=== PATIENT | female | born 1980 | race Caucasian/White ===

== ENCOUNTER 2025-04-16 13:33 | Outpatient (CLI) | payer BC, SELFPAY ==
--- NOTE | ~2025-04-16 | XR_ITS ---
XR chest 2V Ordering provider: Harriett Chandra MD History: 44 years Female with . M51.16 - Intervertebral disc disorders with radiculopathy... . Comparison: None. FINDINGS: MEDIASTINUM: The cardiac silhouette is not enlarged. LUNGS: No infiltrates, effusions or pneumothorax. OTHER: No free air under the diaphragm. IMPRESSION: No acute cardiopulmonary pathology. Reviewed, dictated and finalized at location A.
--- OUTSIDE RECORDS SUMMARY | 2025-04-16 14:17 | XMS_ITS | Clinical Summary ---
Author Organization [facility] Address [address] [place] [address] Care Team Providers Care Recruiting Intern Name Role Phone Amish Carrero MD Primary Care Provider [phone] Source Comments [facility] Affiliates and Associated Physician Practices is amultiple site organization consisting of ambulatory clinics and hospital sitesin [place], [place], [place]. This disclosure is being madepursuant to the Care Everywhere program and may not contain all information available regarding this patient. Last updated 18.[facility] [email or web address] Social History Tobacco Use Types Packs/Day Years Used Date Smoking Tobacco: Never Assessed Comments Unknown Sex and Gender Information Value Date Recorded Sex Assigned at Not on file Legal Sex Female 4:30 PM CDT Gender Identity Not on file Sexual Orientation Not on file Plan of Treatment Health Maintenance Due Date Last Done Comments COLOGUARD (AGES 45-75) - COL ON CA SCREENING 1978 COLON MONITORING 1978 COLONOSCOPY - COLON CA SCREENING 1978 CT COLONOGRAPHY - COLON CA SCREENING 1978 Colorectal Cancer Screening 1978 FIT - COLON CA SCREENING 1978 FLEX SIG - COLON CA SCREENING 1978 LIPID TESTING 1978 MAMMOGRAM 1978 HIV SCREENING 1993 HEPATITIS C SCREENING 08/12/1996 DTAP/TDAP/TD VACCINES (1 - Tdap) 1997 HEPATITIS B VACCINE (1 of 3 - 19+ 3-dose series) 1997 COVID-19 VACCINE (2023-2 5 season) 2024 DEPRESSION SCREENING 11/05/2024 INFLUENZA VACCINE (Season Ended) 2025 ZOSTER VACCINE (1 of 2) 2028 HIB VACCINE Aged Out No longer eligi ble based on patient's age to complete this topic HPV VACCINE Aged Out No longer eligi ble based on patient's age to complete this topic MENINGOCOCCAL (Group B) VACC INE SHARED DECISION-MAKING Aged Out No longer eligibl e based on patient's age to complete this topic MENINGOCOCCAL GROUPS A/C/Y/W VACCINE Aged Out No longer eligible b ased on patient's age to complete this topic PNEUMOCOCCAL VACCINE Aged Out No long er eligible based on patient's age to complete this topic Insurance [employer] Care Teams Recruiting Intern Relationship Specialty Start Date End Date Amish Carrero MD [address] [place] [address] PCP - General Family Medicine 06/21/15
--- OUTSIDE RECORDS SUMMARY | 2025-04-16 14:17 | XMS_ITS | Patient Health Record ---
Author Organization [facility] [employer] [place] ([address]) Address [address] [place] [address] Care Team Providers Care Legal Associate Name Role Phone Jackelin Wei Primary Care Provider UnavailRebekah Blackmon Unavailable [phone] Sarah Bishop Unavailable Unavailable Rafael Price Unavailable [phone] Kathe Guevara Unavailable [phone] [employer], Provider Unavailable Unavailab le Allergies Allergen (clinical drug ingredient) Drug/Non Drug Allergy documented on EMR Reaction Allergy Type Onset Date Status carbamazepine TEGretol rash Drug Allergy Act ngoc Reason For Referral No Information Medications Medication SIG (Take, Route, Frequency, Duration) Notes Start Date End Date Status POTASSIUM 99 mg 1 tab orally once per day for 30 day(s) Not-Taking CRESTOR 10 mg 1 tab(s) orally once a day for 30 day(s) Not-Taking FIORICET 300 mg-50 mg-40 mg 1 cap(s) orally every 4 hours Not-Taking JARDIANCE 10 mg 1 tab(s) orally once a day (in the morning) Not-Taking FOLIC ACID 1 mg 1 tab(s) orally once a day for 30 day(s) Not-Taking VITAMIN D3 50,000 intl units as directed orally once a week for 30 day(s) 05/05/2021 Not-Taking METOPROLOL 50 mg 1 tab(s) orally twice a day Not-Taking COLESTID 1 g 2 tab(s) orally 2 times a day for 30 day(s) Not-Taking BENTYL 10 mg/mL as directed intramuscularly every 6 hours for 1 day(s) Not-Taking POTASSIUM 99 mg 1 tab orally once per day for 30 day(s) Not-Taking predniSONE 20 mg 2 tab(s) x 5 days then 1 tab x 5 days orally once a day for 10 day(s) 05/05/2021 Not-Taking XOLAIR PREFILLED SYRINGE 150 MG/ML DIRECTED SUBCUTANEOUSLY EVERY 4 WEEKS for 28 DAYS *Please review for potential replacement for e-prescription and drug interaction check* 07/29/2020 Not-Taking SINGULAIR 10 mg 1 tab(s) orally once a day for 90 days Not-Taking METOPROLOL 50 mg 1 tab(s) orally 2 times a day Active SYNJARDY 5 mg-1000 mg 1 tab(s) orally daily Not-Taking GABAPENTIN 300 mg 2 cap(s) orally 3 times a day Not-Taking CRESTOR 20 mg 1 tab(s) orally once a day Not-Taking METFORMIN 1000 mg 1 tab(s) orally 2 times a day for 30 day(s) Not-Taking JARDIANCE 10 mg 1 tab(s) orally once a day (in the morning) Not-Taking METFORMIN 1000 mg 1 tab(s) orally once a day for 30 day(s) Not-Taking PREDNISONE 20 mg 2 tab(s) x 5 days then 1 tab x 5 days orally once a day for 10 day(s) 05/05/2021 Not-Taking Singulair 10 MG 1 tab(s) orally once a day for 90 days Active hydrOXYzine HCl 25 MG 1 tablet as needed Orally 1-2 times a day for 30 days Active FEXOFENADINE 180 mg 2 tab(s) orally twice a day for 30 day(s) Active XOLAIR 150 mg 300 mg subcutaneously every 4 weeks for 90 days Active FAMOTIDINE 40 mg 1 tab(s) orally two times a day for 90 days Active VASOTEC 10 mg 1 tab(s) orally once a day Active metFORMIN HCl 1000 MG 1 TAB(S) ORALLY ONCE A DAY for 30 DAY(S) *Please review and pick correct strength-formula tion from [employer] options. If intended option is not shown, discontinue and re-order from Quick Search* Not-Taking XELJANZ 10 mg 1 tab(s) orally 2 times a day Not-Taking PREDNISONE 20 mg 4 tab(s) orally once a day for 7 day(s) 08/11/2021 Not-Taking CETIRIZINE 10 mg 2 tab(s) orally BID-TID Not-Taking Vasotec 10 MG 1 tab(s) orally once a day Active ZOFRAN 8 MG 1 TAB(S) ORALLY 3 TIMES A DAY *Please review for potential replacement for e-prescription and drug interaction check* Not-Taking Metoprolol Tartrate 50 MG 1 tab(s) orally 2 times a day Active Fioricet 50-300-40 MG 1 cap(s) orally every 4 hours Not-Taking Fish Oil 1200 MG 1 CAP ORALLY TID for 30 DAY(S) *Please review and pick correct strength-formula tion from [email or web address] options. If intended option is not shown, discontinue and re-order from [employer] Search* Active PREDNISONE 20 mg 4 tab(s) orally once a day for 5 day(s) Not-Taking EPINEPHrine 0.3 MG/0.3ML as directed Injection as needed for 30 days Active Potassium 99 MG 1 TAB ORALLY ONCE PER DAY for 30 DAY(S) *Please review and pick correct strength-formula tion from [email or web address] options. If intended option is not shown, discontinue and re-order from [employer] Search* Not-Taking Potassium 99 MG 1 TAB ORALLY ONCE PER DAY for 30 DAY(S) *Please review and pick correct strength-formula tion from [email or web address] options. If intended option is not shown, discontinue and re-order from [employer] Search* Not-Taking Jardiance 10 MG 1 tab(s) orally once a day (in the morning) Not-Taking Auvi-Q 0.3 MG/0.3ML as directed Injection once for 1 days 05/29/2024 Active Xeljanz 10 MG 1 tab(s) orally 2 times a day Not-Taking OZEMPIC 2 MG/1.5 ML (0.25 MG OR 0.5 MG DOSE) DIRECTED SUBCUTANEOUSLY ONCE A WEEK *Please review for potential replacement for e-prescription and drug interaction check* Active predniSONE 20 MG 4 tab(s) orally once a day for 7 day(s) 08/11/2021 Not-Taking hydrOXYzine HCl 25 MG 1 tab(s) orally 1-2 times a day for 30 day(s) Not-Taking Cetirizine HCl 10 MG 2 tab(s) orally BID-TID Not-Taking Xolair 150 MG 300 mg subcutaneously every 2 weeks for 90 days Active predniSONE 20 MG 4 tab(s) orally once a day for 5 day(s) Not-Taking metFORMIN HCl 1000 MG 1 tab(s) orally 2 times a day for 30 day(s) Not-Taking Jardiance 10 MG 1 tab(s) orally once a day (in the morning) Not-Taking Colestid 1 GM 2 tab(s) orally 2 times a day for 30 day(s) Not-Taking Bentyl 10 MG/ML as directed intramuscularly every 6 hours for 1 day(s) Not-Taking IRON CHEWS 15 mg 1 tab(s) orally once a day for 30 day(s) Not-Taking MAGNESIUM CHLORIDE N ot-Taking HYDROXYZINE hydrochloride 25 mg 1 tab(s) orally 1-2 times a day for 30 day(s) Not-Taking FISH OIL 1200 mg 1 cap orally tid for 30 day(s) Not-Taking tiZANidine HCl 4 MG Oral for 30 Days Active Diclofenac Sodium 75 MG Oral for 30 Days Active Immunizations Vaccine Route Administration Date Status Comme nts COVID-19 (Moderna) Unknown 12/30/2020 Administered COVID-19 (Moderna) Unknown 01/27/2021 Administered COVID-19 (Moderna) Unknown 09/24/2021 Administered NOC Flucelevax Quadrivalent Unknown 09/06/2020 Administ ered NOC Fluzone Quadrivalent Unknown 11/05/2020 Administere d Social History Tobacco Use: Social History Observation Description Date Details (start date - stop date) Never Smoker NA - NA Sex Assigned At : Social History Observation Description Sex Assigned At Female Tobacco Control (Standard) Question Answer Notes Tobacco use: Nonsmoker AUDIT-C (Standard) Question Answer Notes Did you have a drink contain ing alcohol in the past year? Yes How often did you have a dri nk containing alcohol in the past year? Monthly or less (1 point) How many drinks did you have on a typical day when you were drinking in the past year? 1 or 2 drinks (0 point) How often did you have six o r more drinks on one occasion in the past year? Never (0 point) Points 1 Interpretation Negative Problems Problem Type SNOMED Code ICD Code Onset Dates Problem Status W/U Status Risk Notes Problem Idiopathic urticaria (84820617) Idiopathic urticaria (L50.1) Active confirmed Problem Angioneurotic edema (79513771) Angioneurotic edema, initial encounter (T78.3XXA) Active confirmed Problem Migraine without aura, not refractory (971192978) Other migraine, not intractable, without status migrainosus (G43.809) Active confirmed Problem Rheumatoid arthritis (95598822) Other specified rheumatoid arthritis, multiple sites (M06.89) Active confirmed Problem Spinal stenosis (33367076) Spinal stenosis, site unspecified (M48.00) Active confirmed Problem Elevated blood pressure reading without diagnosis of hypertension (394762921) Elevated blood-pressure reading, without diagnosis of hypertension (R03.0) Active confirmed Problem Nausea and vomiting (39262188) Nausea with vomiting, unspecified (R11.2) Active confirmed Problem Abnormal weight gain (460315191) Abnormal weight gain (R63.5) Active confirmed Problem Angioneurotic edema (75965311) Angioneurotic edema, subsequent encounter (T78.3XXD) Active confirmed Vital Signs Respiratory Rate 17 /min 01/01/2025 Oximetry 100 % 03/26/2025 Blood pressure diastolic 83 mm Hg 03/26/2025 Height 64 in 03/26/2025 Blood pressure systolic 156 mm Hg 03/26/2025 Weight 230 lbs 03/10/2025 BMI 39.48 kg/m2 03/10/2025 Encounters Encounter Location Date Provider Diagnosis [address] [address] 04/19/2024 Provider [employer] [facility] [address] [place] [phone] 05/22/2024 Rafael Price [facility] [address] [facility] [employer] [address] [place] [phone] 04/24/2024 Rafael Price Idiopathic urticaria L50.[address] [place] [phone] 05/29/2024 Kathe Guevara Idiopathic urticaria L50.1 ; Angioneurotic edema, subsequent encounter T78.3XXD ; Other specified rheumatoid arthritis, multiple sites M06.89 ; Other migraine, not intractable, without status migrainosus G43.809 ; Nausea with vomiting, unspecified R11.2 and Elevated blood-pressure reading, without diagnosis of hypertension R03.[address] [phone] 06/26/2024 Rafael Price Idiopathic urticaria L50.[address] [address] 07/24/2024 Rafaelnieves Price Idiopathic urticaria L50.[address] [address] 08/28/2024 Rafael Win Idiopathic urticaria L50.[address] [address] 09/25/2024 Rafael Win Idiopathic urticaria L50.[address] [address] 11/20/2024 Rafael Price Idiopathic urticaria L50.[address] [address] 12/17/2024 Kathe Guevara Idiopathic urticaria L50.1 ; Angioneurotic edema, subsequent encounter T78.3XXD ; Other specified rheumatoid arthritis, multiple sites M06.89 ; Other migraine, not intractable, without status migrainosus G43.809 ; Nausea with vomiting, unspecified R11.2 and Elevated blood-pressure reading, without diagnosis of hypertension R03.0 [facility] [address] [place] [phone] 01/01/2025 Rebekah White Idiopathic urticaria L50.1 ; Angioneurotic edema, subsequent encounter T78.3XXD ; Other specified rheumatoid arthritis, multiple sites M06.89 ; Other migraine, not intractable, without status migrainosus G43.809 ; Nausea with vomiting, unspecified R11.2 and Elevated blood-pressure reading, without diagnosis of hypertension R03.0 [facility] [address] [place] [phone] 01/29/2025 Rafaelnieves Price Idiopathic urticaria L50.[address] [address] 02/26/2025 Rafaelnieves Price Idiopathic urticaria L50.1 [facility] [employer] [address] [place] [address] 03/10/2025 Rafael Price Idiopathic urticaria L50.1 ; Angioneurotic edema, subsequent encounter T78.3XXD ; Other specified rheumatoid arthritis, multiple sites M06.89 ; Other migraine, not intractable, without status migrainosus G43.809 ; Nausea with vomiting, unspecified R11.2 ; Elevated blood-pressure reading, without diagnosis of hypertension R03.0 ; Spinal stenosis, site unspecified M48.00 and Abnormal weight gain R63.5 [facility] [employer] [facility] [address] [place] [phone] 03/26/2025 Rafael Price Idiopathic urticaria L50.1 [facility] [address] [place] [address] 04/24/2024 Rebekah White [facility] [address] [place] [address] 12/01/2024 Rebekah White [facility] [address] [place] [address] 12/05/2024 Rebekah White [facility] [address] [place] [address] 02/24/2025 Rebekah White Assessments Encounter Date Diagnosis (ICD Code) Assessment Notes Treatment Notes Treatment Clinical Notes Section Notes 04/24/2024 Idiopathic urticaria (ICD-10 - L50.1) 05/29/2024 Idiopathic urticaria (ICD-10 - L50.1) CIU with chronic near-daily hives x >6 months. Currently doing well the last few months on Xolair, admits to zero hive outbreaks but having nightly facial fullness/swelling. Also reporting intense itching now that she is late on dosing. - she continues dosing Q4 weeks, 1 week late today, still with interval itching and continued angioedema flares of face, which have been constant throughout her treatment time with Xolair initially - last course of prednisone on 08/2021 for flare in office - plan to continue meds and Xolair, overall she feels Xolair has been beneficial. Refills sent for Atarax. - previously discussed adding in CSA given her incomplete control of her hives and angioedema. With her complex PMH, including DM, HTN, and her current GI issues, she would need to consult her PCP and GI prior to starting therapy. Also consider Sulfasalasine. She is doing better the past few months. No major hives breakouts -needs to take pictures of swelling. Denies any interval hives. Prior flares correspond with late dosing -Recommend seeing Rheum for f/u - AIE on hand, but . Refill sent. - Xolair received today without issues. Aware to follow-up in 4 weeks with provider to continue discussing aggressive treatment for her CIU and angioedema 05/29/2024 Angioneurotic edema, subsequent encounter (ICD-10 - T78.3XXD) Several episodes of angioedema of the lips, mouth and periorbital area since onset of urticaria, consistent with histamine-mediated angioedema. Now with only cheek swelling or puffiness. - Recommend taking pictures the next month then returning for recheck of documentation consider increasing xolair dosing vs. looking at other causes of facial fullness 06/26/2024 Idiopathic urticaria (ICD-10 - L50.1) 07/24/2024 Idiopathic urticaria (ICD-10 - L50.1) 08/28/2024 Idiopathic urticaria (ICD-10 - L50.1) 09/25/2024 Idiopathic urticaria (ICD-10 - L50.1) 11/20/2024 Idiopathic urticaria (ICD-10 - L50.1) 12/17/2024 Idiopathic urticaria (ICD-10 - L50.1) CIU with chronic near-daily hives x >6 months. Currently doing well the last few months on Xolair, admits to zero hive outbreaks but having nightly facial fullness/swelling. No pictures available. Also reporting intense itching when she is late on dosing, but no evidence of hives. - she continues dosing Q4 weeks, still with interval itching with late dosing and continued angioedema flares of face, which have been constant throughout her treatment time with Xolair initially. - last course of prednisone on 08/2021 for flare in office - plan to continue meds and Xolair, overall she feels Xolair has been beneficial. Refills sent for AIE and Singulair. - previously discussed adding in CSA given her incomplete control of her hives and angioedema. With her complex PMH, including DM, HTN, and her current GI issues, she would need to consult her PCP and GI prior to starting therapy. Also consider Sulfasalasine. She is doing better the past few months and is overall very pleased with her progess on Xolair. - Again, stressed she needs to take pictures of swelling. Denies any interval hives, but reports increased itching with missed doses. Prior flares correspond with late dosing. 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 - AIE on hand, but . Refill sent. - Follow-up in 1-2 weeks for Xolair, 2 months for E&M 12/17/2024 Angioneurotic edema, subsequent encounter (ICD-10 - T78.3XXD) Several episodes of angioedema of the lips, mouth and periorbital area since onset of urticaria, consistent with histamine-mediated angioedema. Now with only cheek swelling or puffiness. Again, presents without pictures today. She feels it is greatly improved since Xolair was initiated, though still reporting some level of swelling nightly. - Recommend taking pictures the next month then returning for recheck of documentation consider increasing xolair dosing vs. looking at other causes of facial fullness 01/01/2025 Idiopathic urticaria (ICD-10 - L50.1) CIU with chronic near-daily hives x >6 months. Currently doing well the last few months on Xolair, admits to zero hive outbreaks but having nightly facial fullness/swelling. No pictures available. Also reporting intense itching when she is late on dosing, but no evidence of hives. - she continues dosing Q4 weeks, still with interval itching with late dosing and continued angioedema flares of face, which have been constant throughout her treatment time with Xolair initially. - last course of prednisone on 08/2021 for flare in office - plan to continue meds and Xolair, overall she feels Xolair has been beneficial. Refills sent for AIE and Singulair. - previously discussed adding in CSA given her incomplete control of her hives and angioedema. With her complex PMH, including DM, HTN, and her current GI issues, she would need to consult her PCP and GI prior to starting therapy. Also consider Sulfasalasine. She is doing better the past few months and is overall very pleased with her progess on Xolair. - Again, stressed she needs to take pictures of swelling. Denies any interval hives, but reports increased itching with missed doses. Prior flares correspond with late dosing. 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 Now with only cheek swelling or puffiness. Again, presents without pictures today. She feels it is greatly improved since Xolair was initiated, though still reporting some level of swelling nightly. - Recommend taking pictures the next month then returning for recheck of documentation consider increasing xolair dosing vs. looking at other causes of facial fullness 01/29/2025 Idiopathic urticaria (ICD-10 - L50.1) 02/26/2025 Idiopathic urticaria (ICD-10 - L50.1) 03/10/2025 Idiopathic urticaria (ICD-10 - L50.1) CIU with chronic near-daily hives x >6 months. Life-changing on Xolair. - she continues dosing Q4 weeks without issues. 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 Per [employer]BS: The patient or caregiver is not suitable, not competent or is physically unable to administer the XOLAIR product FDA-labeled for self-administratio n for the following reason(s): See BelowAfter discussing the benefits, risks, and administration options with the patient, together as the provider and patient, we determined that self-administratio n of Xolair PFS by the patient or caregiver is not feasible or appropriate based upon the following reason(s): Patient or caregiver is unable to recognize symptoms of anaphylaxis or unable to treat anaphylaxis appropriately., Patient or caregiver is unable to perform subcutaneous injections with proper technique or adhere to the prescribed dosing regimen., The location and circumstances for self-administratio n are not adequate for the potential treatment of anaphylaxis should that arise. - last course of prednisone on 08/2021 for flare in office - plan to continue meds and Xolair, overall she feels Xolair has been beneficial. Refills sent for AIE and Singulair. - Again, stressed she needs to take pictures of swelling. Denies any interval hives, but reports increased itching with missed doses. Prior flares correspond with late dosing. 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 Now with only cheek swelling or puffiness. Again, presents without pictures today. She feels it is greatly improved since Xolair was initiated, though still reporting some level of swelling nightly. - Recommend taking pictures the next month then returning for recheck of documentation consider increasing xolair dosing vs. looking at other causes of facial fullness 03/26/2025 Idiopathic urticaria (ICD-10 - L50.1) 01/01/2025 Other specified rheumatoid arthritis, multiple sites (ICD-10 - M06.89) Continue per Rheumatology - as above, likely complicating her current CSU, but would recommend communication with fire crew worker given we may need to start additonal meds if swelling continues 03/10/2025 Other specified rheumatoid arthritis, multiple sites (ICD-10 - M06.89) Continue per Rheumatology - as above, likely complicating her current CSU, but would recommend communication with fire crew worker given we may need to start additonal meds if swelling continues 05/29/2024 Other specified rheumatoid arthritis, multiple sites (ICD-10 - M06.89) Continue per Rheumatology - as above, likely complicating her current CSU, but would recommend communication with fire crew worker given we may need to start additonal meds if swelling continues 12/17/2024 Other specified rheumatoid arthritis, multiple sites (ICD-10 - M06.89) Continue per Rheumatology - as above, likely complicating her current CSU, but would recommend communication with fire crew worker given we may need to start additonal meds if swelling continues 05/29/2024 Other migraine, not intractable, without status migrainosus (ICD-10 - G43.809) Continue current medication regimen 12/17/2024 Other migraine, not intractable, without status migrainosus (ICD-10 - G43.809) Continue current medication regimen 01/01/2025 Other migraine, not intractable, without status migrainosus (ICD-10 - G43.809) Continue current medication regimen 03/10/2025 Other migraine, not intractable, without status migrainosus (ICD-10 - G43.809) Continue current medication regimen 05/29/2024 Nausea with vomiting, unspecified (ICD-10 - R11.2) - no interval episodes since last OV in August - continue recommendations per GI and 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 12/17/2024 Nausea with vomiting, unspecified (ICD-10 - R11.2) - no interval episodes since last OV in August - continue recommendations per GI and 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 01/01/2025 Nausea with vomiting, unspecified (ICD-10 - R11.2) - no interval episodes since last OV in August - continue recommendations per GI and 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 - We discussed the difficulty in treating anaphylactic reactions in patients taking beta blockers. She was instructed to hold the beta nichelle the day of her Xolair dosing and then she can resume the next day. She verbalized undestanding that even when not receiving Xolair, epinephrine may not work as effectively given she is on a beta-nichelle every day. Would consider switching to alternative medications, but given the complexity of her BP readings, it may not be ideal. 12/17/2024 Elevated blood-pressure reading, without diagnosis of hypertension (ICD-10 - R03.0) BP elevated on today's exam without tachycardia, signs or symptoms of urgency or emergency, including lightheadedness, dizziness, headahces, nausea. - We discussed the difficulty in treating anaphylactic reactions in patients taking beta blockers. She was instructed to hold the beta nichelle the day of her Xolair dosing and then she can resume the next day. She verbalized undestanding that even when not receiving Xolair, epinephrine may not work as effectively given she is on a beta-nichelle every day. Would consider switching to alternative medications, but given the complexity of her BP readings, it may not be ideal. 05/29/2024 Elevated blood-pressure reading, without diagnosis of hypertension (ICD-10 - R03.0) BP elevated on today's exam without tachycardia, signs or symptoms of urgency or emergency, including lightheadedness, dizziness, headahces, nausea. - We discussed the difficulty in treating anaphylactic reactions in patients taking beta blockers. She was instructed to hold the beta nichelle the day of her Xolair dosing and then she can resume the next day. She verbalized undestanding that even when not receiving Xolair, epinephrine may not work as effectively given she is on a beta-nichelle every day. Would consider switching to alternative medications, but given the complexity of her BP readings, it may not be ideal. 01/01/2025 Elevated blood-pressure reading, without diagnosis of hypertension (ICD-10 - R03.0) BP elevated on today's exam without tachycardia, signs or symptoms of urgency or emergency, including lightheadedness, dizziness, headahces, nausea. - We discussed the difficulty in treating anaphylactic reactions in patients taking beta blockers. She was instructed to hold the beta nichelle the day of her Xolair dosing and then she can resume the next day. She verbalized undestanding that even when not receiving Xolair, epinephrine may not work as effectively given she is on a beta-nichelle every day. Would consider switching to alternative medications, but given the complexity of her BP readings, it may not be ideal. 03/10/2025 Spinal stenosis, site unspecified (ICD-10 - M48.00) Try and avoid steroids for blood sugars and avoid weight gain. 03/10/2025 Abnormal weight gain (ICD-10 - R63.5) Concern about muscle mass loss. To [employer] for [employer] for body composition analysis. Consider weight loss medication change from semaglutide to tirzepatide. Needs to push protein, 1 gram per lb and add resistance training. 05/29/2024 Other 12/17/2024 Other 01/01/2025 Other 03/10/2025 Other Plan Of Treatment Next Appt Details Provider Name:Rafael Fay Albert , 04/23/2025 02:15:00 PM, [address] [facility], [address], [place], [address], Insurance Providers Payer Name Payer Address Payer Phone Subscriber Number Group Number Insured Name Patient Relationship to Insured Coverage Start Date Coverage End Date [facility] [address] [place] [address] [id number] Allen Puga Spouse - patient is the spouse of the insured [employer] [address] [place] [id number] Mulu Puga Self - patient is the insured Medical (General) History Medical History History ICD Code Ruemetoid Arthritis Diabetes migraines High Cholesterol IBS Hives Surgical History Surgery Date(Month/Year) Tonsils removed Carpaltunnel repair Gallbladder removed Hysterectomy, partial Urinary Pace maker Hospitalization History Reason Date(Month/Year) GI Issues 2019
--- OUTSIDE RECORDS SUMMARY | 2025-04-16 14:18 | XMS_ITS | Encounter Summary ---
Author Organization [facility] Address [address] [place] [address] Phone Care Team Providers Care Glass Breaker Name Role Phone Jackelin Wei Primary Care Provider Adriana Rosas MD Unavailable Harvinder Clifford MD Unavailable [phone] Deneen Seymour NP Unavailable [phone] Encounter Details Date Type Department Care Team (Late st Contact Info) Description 02/06/2018 Orders Only [facility] ProviderCarola MD [address] [place] [id number] Social History Tobacco Use Types Packs/Day Years Used Date Smoking Tobacco: Never Smokeless Tobacco: Never Alcohol Use Standard Drinks/Week Comments Yes 0 (1 standard drink = 0.6 oz pure alcohol) no caffeine and once or twice for alcohol a month Comments No Sex and Gender Information Value Date Recorded Sex Assigned at Not on file Legal Sex Female 8:44 AM [employer] Gender Identity Not on file Sexual Orientation Not on file documented as of this encounter Plan of Treatment Not on file documented as of this encounter Procedures Procedure Name Priority Date/Time Associated Diagnosis Comments DISCHARGE LABORATORY CUMULATIVE REPORT 02/06/2018 12:00 AM CDT documented in this encounter Results * DISCHARGE LABORATORY CUMULATIVE REPORT (02/06/2018 12:00 AM CDT) Narrative 02/06/2018 12:00 AM CDT Ordered by an unspecified provider. us Historical Provider LAB BLOOD ORDERABLES Sparkle l Result documented in this encounter Visit Diagnoses Not on filedocumented in this encounter Additional Health Concerns Infection Onset Date Last Indicated Resolved Time C. difficile 10/06/2019 10/06/2019 07/27/2020 2:47 PM CDT documented as of this encounter Care Teams Glass Breaker Relationship Specialty Start Date End Date Jackelin Wei PA PCP - General 05/10/17 [place] [id number] [address] Rheumatology 06/06/17 [place] [address] [place] [address] Consulting Physician Gastroenterology 07/28/20 D[place] [address] Nurse Practitioner Nurse Practitioner 08/01/24 documented as of this encounter
--- OUTSIDE RECORDS SUMMARY | 2025-04-16 14:18 | XMS_ITS | Referral Summary ---
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 Name Role Phone Sanjuana Jackelin DIOR Primary Care Provider Adriana Rosas MD Unavailable Harvinder Clifford MD Unavailable [phone] Deneen Seymour NP Unavailable [phone] Encounters Date Type Department Care Team Description 03/09/2025 Telephone [facility] at [address], [address] [place] [address] Shavonne Stanton MD 2 week post proc call 02/23/2025 8:47 AM CDT - 02/23/2025 11:59 PM CDT Hospital Encounter [facility] at [address], [address] [place] [address] Shavonne Stanton MD Chronic midline low back pain with left-sided sciatica (Primary Dx); Pain of left hip; Lumbar radiculopathy; Protrusion of lumbar intervertebral disc Discharge Disposition: Discharge to home or self care 02/20/2025 Telephone [facility] at [address], [address] [place] [address] Gemini Alberts, ISMAEL PMC Intake Assessment 02/19/2025 9:00 AM CDT Office Visit [facility] Neurosurgery [address] [facility] 6[address] [place] [phone] Nicolette Gloria NP Pain of left hip (Primary Dx); Lumbar radiculopathy 02/10/2025 11:58 AM CDT - 02/10/2025 11:59 PM CDT Hospital Encounter [facility] [address] [facility] [address] [place] [phone] Left hip pain Discharge Disposition: Discharge to home or self care 02/10/2025 1:00 PM CDT Office Visit [facility] Orthopaedic Surgery [address] [facility] [address] [place] [phone] Sera Anne PA Left hip pain (Primary Dx); Pain of left hip 01/14/2025 10:00 AM CDT Procedure visit [facility] Neurological Testing [address] [facility] 6th [place] [address] [place] [address] Lumbar radiculopathy from Last 3 Months Allergies Active Allergy Reactions Criticality Noted Date Comments Adalimumab Vomiting Low Carbamazepine Rash Medium Medications folic acid (FOLVITE) 1 mg tablet take 1 tablet by oral route every day 90 3 7 Active VITAMIN D2 50,000 unit capsule TAKE 1 CAPSULE BY MOUTH ONCE A WEEK 12 capsule 8 Active montelukast (SINGULAIR) 10 mg tablet Take 1 tablet (10 mg total) by mouth nightly Active hydrOXYzine (ATARAX) 10 mg tablet Take 2.5 tablets (25 mg total) by mouth every 6 (six) hours as needed (Hives outbreak) Active fexofenadine (ABBY) 180 mg tablet Take 1 tablet (180 mg total) by mouth daily 2 tabs daily Active enalapril (VASOTEC) 5 mg tablet Take 1 tablet (5 mg total) by mouth every morning Active metoclopramide (REGLAN) 10 mg tablet Take 1 tablet (10 mg total) by mouth as needed (nausea due to IBS) Active famotidine (PEPCID) 40 mg tablet Take 1 tablet (40 mg total) by mouth 2 (two) times a day Active omalizumab (XOLAIR) 150 mg injection Inject 2.4 mL (300 mg total) under the skin every 4 (four) weeks Every 4 weeks 2 injections ( 150 mg in each arm every 4 weeks) Does it early in the month ( first week of March 2023 last dose) Active epinephrine (EPIPEN INJ) Inject as directed as needed (Chronic hives) Has chronic hives Active empagliflozin-m etformin (Synjardy XR) 10-1,000 mg tablet, IR & ER, biphasic 24hr Take 1 tablet by mouth every morning Active semaglutide 0.25 mg or 0.5 mg (2 mg/3 mL) pen injector injection Inject 0.5 mg under the skin every 7 days THURSDAYS Active gabapentin (NEURONTIN) 600 mg tabletIndicatio ns:Neuropathic Pain Take 1 tablet (600 mg total) by mouth 3 (three) times a day 90 capsule 2 4 08/18/20 25 Active fluticasone propionate (FLONASE) 50 mcg/actuation nasal spray 5 Active metoprolol tartrate (LOPRESSOR) 50 mg immediate release tablet 4 Active rosuvastatin (Crestor) 10 mg tablet Active iron, carbonyl 15 mg tablet,chewable daily Acti ve tiZANidine (ZANAFLEX) 4 mg tablet Take 1 tablet (4 mg total) by mouth nightly as needed for muscle spasms 30 tablet [address] (VOLTAREN) 75 mg EC tablet Take 1 tablet (75 mg total) by mouth 2 (two) times a day 60 tablet 1 5 02/20/20 26 Active Active Problems Problem Noted Date Diagnosed Date Low back pain 08/18/2024 Intervertebral disc disorder with radiculopathy of lumbar region 08/18/2024 Hand weakness 08/18/2024 Numbness and tingling in both hands 08/18/2024 Lumbar foraminal stenosis 08/18/2024 Cervicalgia 04/07/2024 Assessment & Plan (04/07/2024 5:12 PM CDT): Hearing test Continue Flonase TMJ dysfunction discussed and Handout provided Sensorineural hearing loss (SNHL) of both ears 0 04/07/2024 Assessment & Plan (04/07/2024 5:12 PM CDT): Protect hearing Overactive bladder 04/30/2023 Urge urinary incontinence 04/18/2023 OAB (overactive bladder) 12/01/2022 Urge incontinence of urine 12/01/2022 Nocturia 12/01/2022 Dysuria 11/28/2021 Lower urinary tract symptoms (LUTS) 11/28/2021 LLQ abdominal pain 10/03/2019 Assessment & Plan (10/10/2019 9:54 AM THREAD SPINNER): Likely 2/2 epiploic appendagitis per Rads as well as c diff colitis. Rads report was not addended d/t it being performed w/in [facility] system. Pain not improved. - MANAGER INSURANCE seen, no torsion and negative eval. Evaluated by Gen surgery this AM and no need for surgery. GI also recommending conservative treatment. Sxs are self limited and should continue pain control. -will continue scheduled Tylenol, Toradol and prn oxycodone. IV dilaudid required for breakthrough until 12-4. - now able to tolerate PO intake adequately. - started on oral vanc 125 QID for c diff on 12-3, planned for 10 days. Patient will continue this as outpatient. Assessment & Plan (10/09/2019 9:12 AM THREAD SPINNER): Likely 2/2 epiploic appendagitis per Rads as well as c diff colitis. Rads report was not addended d/t it being performed w/in [facility] system. Pain not improved. - MANAGER INSURANCE seen, no torsion and negative eval. Evaluated by Gen surgery this AM and no need for surgery. GI also recommending conservative treatment. Sxs are self limited and should continue pain control. -will continue scheduled Tylenol, Toradol and prn oxycodone. IV dilaudid required for breakthrough until 12-4. - continue IVF as needed for decreased PO intake. Poor po d/t pain, but continuing to encourage. - started on oral vanc 125 QID for c diff on 12-3, planned for 10 days. Assessment & Plan (10/08/2019 9:12 AM THREAD SPINNER): Likely 2/2 epiploic appendagitis per Rads as well as c diff colitis. Rads report was not addended d/t it being performed w/in [facility] system. Pain not improved. - MANAGER INSURANCE seen, no torsion and negative eval. - Evaluated by Gen surgery this AM and no need for surgery. GI also recommending conservative treatment. Sxs are self limited and should continue pain control. -will continue scheduled Tylenol, Toradol and prn oxycodone. IV dilaudid required for breakthrough until 12-. -continue IVFs. Poor po d/t pain, but continuing to encourage. - started on oral vanc 125 QID for c diff on 12-, planned for 10 days. Assessment & Plan (10/07/2019 9:24 AM THREAD SPINNER): Likely 2/2 epiploic appendagitis per Rads as well as c diff colitis. Rads report was not addended d/t it being performed w/in [facility] system. Pain not improved. - MANAGER INSURANCE seen, no torsion and negative eval. - Evaluated by Gen surgery this AM and no need for surgery. GI also recommending conservative treatment. Sxs are self limited and should continue pain control. -will continue scheduled Tylenol, Toradol and prn oxycodone, with back p IV dilaudid 1mg Q3. If sxs still not controlled may need CALL SPECIALIST. -continue IVFs. Poor po d/t pain. - started on oral vanc 125 QID for c diff on 12-3, planned for 10 days. Assessment & Plan (10/06/2019 12:16 PM THREAD SPINNER): Likely 2/2 epiploic appendagitis per Rads. Report was not addended d/t it being performed w/in [facility] system. Pain not improved. - MANAGER INSURANCE seen, no torsion and negative eval. - Evaluated by Gen surgery this AM and no need for surgery. GI also recommending conservative treatment. Sxs are self limited and should continue pain control. -will continue scheduled Tylenol, Toradol and prn oxycodone, with back p IV dilaudid 1mg Q3. If sxs still not controlled may need CALL SPECIALIST. -continue IVFs. Poor po d/t pain. Assessment & Plan (10/05/2019 3:18 PM THREAD SPINNER): Likely 2/2 epiploic appendagitis per Rads. Report was not addended d/t it being performed w/in [facility] system. Pain not improved. - MANAGER INSURANCE seen, no torsion and negative eval. -Evaluated by Gen surgery this AM and no need for surgery. Sxs are self limited and should continue pain control. -will continue scheduled Tylenol, Toradol and prn oxycodone. Will switch morphine to dilaudid 1mg Q3. If sxs still not controlled may need CALL SPECIALIST. -continue IVFs. Poor po d/t pain. Assessment & Plan (10/04/2019 10:03 AM THREAD SPINNER): Likely 2/2 epiploic appendagitis per Rads. Report was not addended d/t it being performed w/in [facility] system. Pain not improved. -Evaluated by Gen surgery this AM and no need for surgery. Sxs are self limited and should continue pain control. -will continue scheduled Tylenol, Toradol and prn oxycodone. Will switch morphine to dilaudid 1mg Q3. If sxs still not controlled may need CALL SPECIALIST. -continue IVFs. Poor po d/t pain. Assessment & Plan (10/03/2019 2:46 PM THREAD SPINNER): Per MANAGER INSURANCE: CT scan reread by Radiology this AM and c/w epiploic appendagitis. -Literature indicating that sxs are usually self limited and do not require surgery. Symptom management is favored. Discussed with Radiology, who agrees. -Will trial sx control with scheduled Tylenol and Toradol, and prn oxycodone and morphine. If sxs not controlled, will consult general surgery to evaluate. -continue IVFs and clears for now Lactic acidosis 10/03/2019 Assessment & Plan (10/03/2019 2:55 PM THREAD SPINNER): Likely 2/2 epiploic appendagitis. Anion gap acidosis on BMP at OSH with elevated lactate to 2.7. Anion gap closed and lactate improved to 1.3 s/p IVFs. -continue IVFs. -monitor Diabetes mellitus, type 2 10/03/2019 Assessment & Plan (10/07/2019 9:24 AM THREAD SPINNER): BG stable. -continue holding metformin - BG have been stable while inpatient, so will discontinue LDSSI Assessment & Plan (10/06/2019 12:16 PM THREAD SPINNER): BG stable. -continue holding metformin -continue LDSSI and monitor. Assessment & Plan (10/05/2019 3:18 PM THREAD SPINNER): BG stable. -continue holding metformin -continue LDSSI and monitor. Assessment & Plan (10/04/2019 9:56 AM THREAD SPINNER): BG stable. -continue holding metformin -continue LDSSI and monitor. Assessment & Plan (10/03/2019 2:59 PM THREAD SPINNER): Reports recent diagnosis. Currently on metformin 500mg bid. Glucose stable. -hold metformin -continue LDSSI and monitor. Irritable bowel syndrome wit h both constipation and diarrhea 11/14/2018 Vitamin D deficiency 08/06/2018 Assessment & Plan (02/12/2019 11:33 AM CDT): Update lab as per orders. Assessment & Plan (11/14/2018 10:51 AM THREAD SPINNER): Update lab as per orders. Assessment & Plan (08/06/2018 11:42 AM CDT): Images from the original note were not included. Update lab as per orders. Class 3 severe obesity due t o excess calories with serious comorbidity and body mass index (BMI) of 50.0 to 59.9 in adult 02/06/2018 Assessment & Plan (02/12/2019 11:33 AM CDT): An optimal BMI (body mass index) is between 20 and 25. Encourage weight loss. Each pound of weight lost unloads 3-4 pounds per square inch pressure from weight bearing joints. Diet and exercise are the keys to weight management. Assessment & Plan (11/14/2018 10:43 AM THREAD SPINNER): An optimal BMI (body mass index) is between 20 and 25. Encourage weight loss. Each pound of weight lost unloads 3-4 pounds per square inch pressure from weight bearing joints. Diet and exercise are the keys to weight management. Assessment & Plan (08/06/2018 11:38 AM CDT): An optimal BMI (body mass index) is between 20 and 25. Encourage weight loss. Each pound of weight lost unloads 3-4 pounds per square inch pressure from weight bearing joints. Diet and exercise are the keys to weight management. Assessment & Plan (05/07/2018 11:13 AM CDT): An optimal BMI (body mass index) is between 20 and 25. Encourage weight loss. Each pound of weight lost unloads 3-4 pounds per square inch pressure from weight bearing joints. Diet and exercise are the keys to weight management. Assessment & Plan (02/06/2018 2:20 PM CDT): An optimal BMI (body mass index) is between 20 and 25. Encourage weight loss. Each pound of weight lost unloads 3-4 pounds per square inch pressure from weight bearing joints. Diet and exercise are the keys to weight management. History of TB (tuberculosis) 02/06/2018 Overview (05/07/2018): Images from the original note were not included. History of tuberculosis treated in childhood. QuantiFERON TB 02/2018 negative. Assessment & Plan (08/06/2018 11:39 AM CDT): Recent (02/2018) QuantiFERON TB negative. Assessment & Plan (05/07/2018 11:15 AM CDT): Images from the original note were not included. History of tuberculosis treated in childhood. QuantiFERON TB 02/2018 negative. Assessment & Plan (02/06/2018 2:21 PM CDT): History of tuberculosis treated in childhood. QuantiFERON TB 02/2017 negative. Encounter for long-term (cur rent) use of high-risk medication 08/31/2017 Assessment & Plan (02/12/2019 11:33 AM CDT): Patient on immunosuppressive medications requiring periodic lab monitoring for drug safety. Update lab as per orders written. Assessment & Plan (11/14/2018 10:43 AM THREAD SPINNER): Patient on immunosuppressive medications requiring periodic lab monitoring for drug safety. Update lab as per orders written. Assessment & Plan (08/06/2018 11:38 AM CDT): Patient on immunosuppressive medications requiring periodic lab monitoring for drug safety. Update lab as per orders written. Assessment & Plan (05/07/2018 11:13 AM CDT): Patient on immunosuppressive medications requiring periodic lab monitoring for drug safety. Update lab as per orders written. Assessment & Plan (02/06/2018 2:20 PM CDT): Patient on immunosuppressive medications requiring periodic lab monitoring for drug safety. Update lab as per orders written. [facility]oid [facility] without rheumatoid factor 06/22/2017 Overview (09/08/2018): Images from the original note were not included. Assessment & Plan (10/10/2019 9:53 AM THREAD SPINNER): Sero-negative, on methotrexate (wednesdays) and Xeljanz. -continue Xeljanz. Assessment & Plan (10/09/2019 9:10 AM THREAD SPINNER): Sero-negative, on methotrexate (wednesdays) and Xeljanz. -continue Xeljanz. Assessment & Plan (10/08/2019 9:11 AM THREAD SPINNER): Sero-negative, on methotrexate (wednesdays) and Xeljanz. -continue Xeljanz. Assessment & Plan (10/07/2019 9:23 AM THREAD SPINNER): Sero-negative, on methotrexate (wednesdays) and Xeljanz. -continue Xeljanz. Assessment & Plan (10/06/2019 12:15 PM THREAD SPINNER): Sero-negative, on methotrexate (wednesdays) and Xeljanz. -continue Xeljanz. Assessment & Plan (10/05/2019 3:17 PM THREAD SPINNER): Sero-negative, on methotrexate (wednesdays) and Xeljanz. -continue Xeljanz. Assessment & Plan (10/04/2019 10:06 AM THREAD SPINNER): On methotrexate (wednesdays) and Xeljanz. -continue Xeljanz. Assessment & Plan (10/03/2019 2:47 PM THREAD SPINNER): On methotrexate and Xeljanz. -continue Xeljanz. -Not due for methotrexate. Assessment & Plan (02/12/2019 11:34 AM CDT): Seronegative RA with continued pain, stiffness hands (especially R index finger)she is really not getting relief from Actemra and alternative biologic response modifiers discussed. (Rapid3 16.2). She has previously failed Humira, Enbrel and Orencia. Will attempt to get approval for Xeljanz. She has been off Actemra already x 2 week and will not take her last remaining injection. Methylprednisolone Dosepack prescribed today for acute pain R index finger. TOFACITINIB (XELJANZ) PATIENT INFORMATION: Tofacitinib citrate (Xeljanz ) is a coated tablet you swallow. The standard dosage is one 5 mg tablet taken twice a day. Tofacitinib s most common side effects are upper respiratory tract infections, diarrhea, headache, nasal congestion, sore throat and runny nose. Tofacitinib may lower your body s ability to fight infections, including TB. Watch for any signs of a possible infection, and don t take tofacitinib while you have an active infection until it is well controlled. Tofacitinib should not be used by people who have severe liver problems. It s unknown if tofacitinib is safe and effective in people with hepatitis B or C. Tofacitinib should be used with caution in people who have been told they are at a high risk of developing gastrointestinal perforation (a hole in the stomach, large bowel or small intestine). Before taking tofacitinib, tell your doctor if you have had TB, or if you have lived in or traveled to an area of the country or world where TB outbreaks are common. Tofacitinib may increase your risk of developing certain cancers, including lymphoma and some skin cancers, or activate hepatitis B or C if you are carrying those viruses. Tofacitinib citrate (Xeljanz ) is an oral, small molecule drug used to treat adults with qxcijhzr-en-erwcti, active rheumatoid arthritis who have not responded well to being treated with methotrexate. Methotrexate is a disease-modifying antirheumatic drug (DMARD) used to treat rheumatoid arthritis (RA). Tofacitinib acts to block the body s production of enzymes called Janus kinases (JAKs). JAKs play a role in joint inflammation in RA, which can cause pain, swelling and stiffness. If left untreated, RA inflammation could lead to joint erosions, and organ and tissue damage. It may be used alone or in combination with methotrexate or other DMARDs. Tofacitinib is currently being studied for use in treating other autoimmune diseases, including psoriasis, psoriatic arthritis, ulcerative colitis, Crohn s disease and ankylosing spondylitis. HOW TO TAKE IT: Tofacitinib is a coated tablet that you swallow. The recommended dose is one 5 mg taken twice a day. People with moderate to severe renal impairment, or moderate hepatic impairment, should take only one 5 mg tablet per day. You may take tofacitinib tablets with or without food. Tofacitinib may be used alone to treat RA, or it may be used in combination with methotrexate or other DMARDs. However, it s not recommended to use tofacitinib with biologics, DMARDs, or with potent immunosuppressant drugs like azathioprine or cyclosporine. RISKS AND SIDE EFFECTS: Tofacitinib may reduce your body s ability to fight infection. Do not use tofacitinib if you have an active infection, even a localized infection, and don t start using tofacitinib again until your infection is well controlled. You should not take live vaccines while taking tofacitinib, but it s safe to take non-live vaccines. Some people who have taken tofacitinib have developed serious infections, such as tuberculosis (TB), invasive fungal infections, and bacterial and viral infections. You should watch carefully for the signs of infection during and after taking tofacitinib, including fever, chills, muscle aches, cough, body sores, diarrhea and pain when urinating. While taking tofacitinib, your doctor will test you regularly for changes to your blood or liver enzymes. Your doctor should test you for TB before you start taking tofacitinib, and watch you for signs of TB development while you are taking the drug. Before starting tofacitinib, you should tell your doctor if you have any medical condition that may make you more susceptible to infection, such as diabetes, HIV or a weak immune system. You should also tell your doctor if you have traveled or lived in any areas where there it is more likely to get certain fungal infections, or in countries where TB is widespread. Tofacitinib may increase your risk of certain cancers, such as lymphoma or some skin cancers, by suppressing your body s immune system responses. Some people taking tofacitinib, particularly those also taking nonsteroidal anti-inflammatory drugs (NSAIDs) or corticosteroids, may experience perforations or tears in their stomach or intestines, so tell your doctor if you have any unexplained stomach pain or changes in your bowel habits. Before starting tofacitinib, tell your doctor if you have had kidney or liver problems, or gastrointestinal problems like diverticulitis or ulcers. Some people taking drugs to prevent the rejection of a kidney transplant as well as taking tofacitinib have developed an Eris-Jones virus-related infection, so tell your doctor if you have had a transplant and are taking these drugs. Tofacitinib also may lead to the activation of hepatitis B or C in people who carry those viruses. The most common side effects of tofacitinib include upper respiratory tract infections, diarrhea, headache, nasal congestion, sore throat and runny nose. It s unknown how tofacitinib may affect unborn children or be passed through breast milk, so or nursing women should weigh the possible risks and benefits of tofacitinib with their doctor. Tofacitinib s effectiveness may be reduced if taken with some antifungal and other medications, so tell your doctor about any medications you use before starting tofacitinib, or if you are preparing to get any vaccines. Updated May 2014. Written by Sarah Tirado and reviewed by the [employer] Committee on Communications and Marketing. This information is provided for general education only. Individuals should consult a qualified health care provider for professional medical advice, diagnosis and treatment of a medical or health condition. 2014 [employer] See more at: [email or web address]://[email or web address].org/I-Am-A/Patient-[email or web address]-Cit rate- [email or web address] Assessment & Plan (11/14/2018 10:51 AM THREAD SPINNER): Seronegative RA clinically stable on current med regimen. No med side effects reported. Rapid3 13.3. Update lab as per orders. Continue same. Assessment & Plan (08/06/2018 11:37 AM CDT): Seronegative RA with continued synovitis and stiffness especially hands/wrists (R index finger) on current med regimen. Previously discussed possible transition from Actemra to Xeljanz OR Rituxan. Recommend updated ultrasound hands/wrists. Update lab as per orders. Medrol Dosepak provided form hopefully immediate relief on painful index finger. Consider steroid injection if no improvement. Seasonal influenza and Prevnar-13 (pneumococcal pneumonia immunization) administered today. Assessment & Plan (05/07/2018 11:12 AM CDT): RA with continued pain and stiffness bilateral hands/wrists. Rapid3 13.7. No med side effects reported. Recommend increase methotrexate (Rasuvo) to 20 mg weekly. Update lab as per orders. . Previously tried and failed Humira, Enbrel and Orencia. IF symptoms do not respond to increased dose methotrexate we will update imaging hands (ultrasound) and consider alternate biologic response modifiers in place of Actemra. (Possibly Xeljanz or Rituxan as allowed by insurance.) TOFACITINIB (XELJANZ) PATIENT INFORMATION: Tofacitinib citrate (Xeljanz ) is a coated tablet you swallow. The standard dosage is one 5 mg tablet taken twice a day. Tofacitinib s most common side effects are upper respiratory tract infections, diarrhea, headache, nasal congestion, sore throat and runny nose. Tofacitinib may lower your body s ability to fight infections, including TB. Watch for any signs of a possible infection, and don t take tofacitinib while you have an active infection until it is well controlled. Tofacitinib should not be used by people who have severe liver problems. It s unknown if tofacitinib is safe and effective in people with hepatitis B or C. Tofacitinib should be used with caution in people who have been told they are at a high risk of developing gastrointestinal perforation (a hole in the stomach, large bowel or small intestine). Before taking tofacitinib, tell your doctor if you have had TB, or if you have lived in or traveled to an area of the country or world where TB outbreaks are common. Tofacitinib may increase your risk of developing certain cancers, including lymphoma and some skin cancers, or activate hepatitis B or C if you are carrying those viruses. Tofacitinib citrate (Xeljanz ) is an oral, small molecule drug used to treat adults with utwgclte-tw-wdqoof, active rheumatoid arthritis who have not responded well to being treated with methotrexate. Methotrexate is a disease-modifying antirheumatic drug (DMARD) used to treat rheumatoid arthritis (RA). Tofacitinib acts to block the body s production of enzymes called Janus kinases (JAKs). JAKs play a role in joint inflammation in RA, which can cause pain, swelling and stiffness. If left untreated, RA inflammation could lead to joint erosions, and organ and tissue damage. It may be used alone or in combination with methotrexate or other DMARDs. Tofacitinib is currently being studied for use in treating other autoimmune diseases, including psoriasis, psoriatic arthritis, ulcerative colitis, Crohn s disease and ankylosing spondylitis. HOW TO TAKE IT: Tofacitinib is a coated tablet that you swallow. The recommended dose is one 5 mg taken twice a day. People with moderate to severe renal impairment, or moderate hepatic impairment, should take only one 5 mg tablet per day. You may take tofacitinib tablets with or without food. Tofacitinib may be used alone to treat RA, or it may be used in combination with methotrexate or other DMARDs. However, it s not recommended to use tofacitinib with biologics, DMARDs, or with potent immunosuppressant drugs like azathioprine or cyclosporine. RISKS AND SIDE EFFECTS: Tofacitinib may reduce your body s ability to fight infection. Do not use tofacitinib if you have an active infection, even a localized infection, and don t start using tofacitinib again until your infection is well controlled. You should not take live vaccines while taking tofacitinib, but it s safe to take non-live vaccines. Some people who have taken tofacitinib have developed serious infections, such as tuberculosis (TB), invasive fungal infections, and bacterial and viral infections. You should watch carefully for the signs of infection during and after taking tofacitinib, including fever, chills, muscle aches, cough, body sores, diarrhea and pain when urinating. While taking tofacitinib, your doctor will test you regularly for changes to your blood or liver enzymes. Your doctor should test you for TB before you start taking tofacitinib, and watch you for signs of TB development while you are taking the drug. Before starting tofacitinib, you should tell your doctor if you have any medical condition that may make you more susceptible to infection, such as diabetes, HIV or a weak immune system. You should also tell your doctor if you have traveled or lived in any areas where there it is more likely to get certain fungal infections, or in countries where TB is widespread. Tofacitinib may increase your risk of certain cancers, such as lymphoma or some skin cancers, by suppressing your body s immune system responses. Some people taking tofacitinib, particularly those also taking nonsteroidal anti-inflammatory drugs (NSAIDs) or corticosteroids, may experience perforations or tears in their stomach or intestines, so tell your doctor if you have any unexplained stomach pain or changes in your bowel habits. Before starting tofacitinib, tell your doctor if you have had kidney or liver problems, or gastrointestinal problems like diverticulitis or ulcers. Some people taking drugs to prevent the rejection of a kidney transplant as well as taking tofacitinib have developed an Eris-Jones virus-related infection, so tell your doctor if you have had a transplant and are taking these drugs. Tofacitinib also may lead to the activation of hepatitis B or C in people who carry those viruses. The most common side effects of tofacitinib include upper respiratory tract infections, diarrhea, headache, nasal congestion, sore throat and runny nose. It s unknown how tofacitinib may affect unborn children or be passed through breast milk, so or nursing women should weigh the possible risks and benefits of tofacitinib with their doctor. Tofacitinib s effectiveness may be reduced if taken with some antifungal and other medications, so tell your doctor about any medications you use before starting tofacitinib, or if you are preparing to get any vaccines. Updated May 2014. Written by Sarah Tirado and reviewed by the [employer] Committee on Communications and Marketing. This information is provided for general education only. Individuals should consult a qualified health care provider for professional medical advice, diagnosis and treatment of a medical or health condition. 2014 [employer] See more at: [email or web address]/I-Am-[email or web address]-Caregiver/Treatments/Tofacitinib-Cit rate- Xeljanz#[email or web address] RITUXAN PATIENT INFORMATION: Rituximab (Rituxan and MabThera) is a drug used to treat rheumatoid arthritis that has not improved with other types of medications, as well as certain forms of vasculitis. It works by turning off a part of the immune system that is not working properly in autoimmune diseases. Rituximab is used in combination with methotrexate to treat rheumatoid arthritis that has not responded to one or more types of treatment, including TNF inhibitors. Rituximab also is used to treat certain types of vasculitis (an inflammatory condition affecting blood vessels), such as granulomatosis with polyangiitis or MPA. Occasionally rituximab is used to treat other immune problems, including lupus, and inflammatory muscle diseases. Rituximab also is used in the treatment of some blood disorders, including chronic lymphocytic leukemia and non-Hodgkin s lymphoma. HOW TO TAKE IT: Rituximab is given as an intravenous infusion (IV or d rip ) into a vein. The infusion usually takes two - four hours, although occasionally it can take longer. A course of rituximab for rheumatoid arthritis usually consists of two 1000mg doses given 15 days apart. To treat vasculitis, a smaller dose is given once a week for four weeks in a row. The effects of rituximab begin about six weeks after the infusions. Usually by the third month the full effect occurs, and can last up to nine months. SIDE EFFECTS: Sometimes, patients blood pressure can drop during the treatment. Those who take medication to lower their blood pressure may have to stop it before the infusion. Some patients feel mild side effects during or up to 24 hours after receiving rituximab. These usually occur with the first infusion, and can include mild throat tightening, flu-like symptoms, rash, itchiness, dizziness, back pain, nausea, upset stomach, sweating, nervousness, muscle stiffness, and numbness. These symptoms can be reduced by receiving a steroid injection before the infusion, along with acetaminophen (Tylenol) and diphenhydramine (Benadryl). The infusion is sometimes stopped for a short while and then restarted at a slower rate if the symptoms get better. Rarely, patients will have more serious symptoms, such as wheezing, mouth or throat swelling, trouble breathing, or chest pain. Patients who experience these symptoms should tell their health care providers immediately; patients may receive stronger medications to treat those symptoms. In the months after the treatment, some people may notice more frequent infections, such as colds or sinusitis. Usually, these are not severe. There are a few rare but serious side effects from rituximab. These include severe skin reactions and mouth sores. Patients who experience vision changes, loss of balance, difficulty walking, or confusion should contact their doctors immediately. Combining treatment with other biologic drugs, which suppress the immune system, including etanercept (Enbrel), adalimumab (Humira), infliximab (Remicade), certolizumab (Cimzia), golimumab (Simponi), abatacept (Orencia), and tocilizumab (Actemra) may increase the risk of serious infections and medication side effects. Blood pressure medications may increase the risk of low blood pressure during the infusion. TELL YOUR DOCTOR: Tell your doctor if you have lung or heart problems, or have ever had any major infections (especially hepatitis). Let your health care providers know about all medications you are currently taking, including pagy-arb-kxrkxiy medications, supplements, and herbal therapies. Also, tell them about all allergic reactions you have had to medications. If you are a woman who can get , it is important to use reliable control before treatment and for 12 months afterward. Since vaccines are not as effective for several months after receiving rituximab, you should ideally receive necessary ones before starting treatment or between courses. Updated February 2017 by Ba Garcia MD and reviewed by the [employer] Committee on Communications and Marketing. This information is provided for general education only. Individuals should consult a qualified health care provider for professional medical advice, diagnosis and treatment of a medical or health condition. 2017 [employer] - See more at: https://[email or web address].org/I-Am-A/Patient-Caregiver/Treatments/Rituximab-Ritux an-Rubi Waldena#[email or web address] Assessment & Plan (02/06/2018 2:19 PM CDT): Seronegative rheumatoid arthritis previously diagnosed and managed by Dr. Adriana Rosas. Past medical records, labs and imaging reviewed in detail. Currently on methotrexate, sulfasalazine and tocilizumab as well as prn prednisone. She is not yet noticing response to tocilizumab after 8 weeks on Rx. Will update lab and imaging as per orders. Consider ultrasound hands/wrists BJ pend same. Methotrexate dose potentially could be increased. Eventual trials of tofacitinib ( Xeljanz) or rituximab ( Rituxan) pend clinical course discussed. Skin neoplasm 09/19/2016 Melanocytic nevus of trunk 08/24/2016 Impaired fasting glucose 01/08/2013 Resolved Problems Problem Noted Date Diagnosed Date Resolved Date Pleurisy 06/25/2017 08/06/2018 Encounter for long-term (cur rent) use of other medications 06/22/2017 02/06/2018 Drug indicated 07/23/2012 02/06/2018 Overview (02/09/2017): LONG-TERM USE MEDS NEC Disorder of joint 04/09/2012 08/06/2018 Overview (02/09/2017): ARTHROPATHY NOS-UNSPEC Adverse reaction to substance 02/21/2012 02/06/2018 Overview (02/08/2017): ADV EFF MED/BIOL SUB NOS Arthralgia of multiple joints 07/17/2011 08/06/2018 Overview (02/08/2017): JOINT PAIN-MULT JTS Immunizations Immunization Administration Dates Next Due Influenza, Quadrivalent, Alise l Culture-based MDCK, Antibiotic Free, Intramuscular 09/06/2020 Influenza, Quadrivalent, Spl it, Preservative Free, Intramuscular 10/06/2021,10/04/2019,08/06/2018 Influenza, Trivalent, IM (MDV) 07/19/2015 Moderna SARS-CoV-2 Monovalen t Vaccination (12+ YRS) 01/27/2021,12/30/2020 Moderna Sars-cov-2 Monovalen t Booster Vaccination .25 Ml dose (12+ YRS) 09/24/2021 Pneumococcal Conjugate PCV 13 08/06/2018 Social History Tobacco Use Types Packs/Day Years Used Date Smoking Tobacco: Never Passive Smoke Exposure: Never Smokeless Tobacco: Never Tobacco Cessation:Counseling Given: No Alcohol Use Standard Drinks/Week Comments Not Currently 0 (1 standard drink = 0.6 oz pur e alcohol) AUDIT-C Answer Date Recorded Q1: How often do you have a drink containing alc ohol? Monthly or less 02/19/2025 Q2: How many drinks containi ng alcohol do you have on a typical day when you are drinking? 1 or 2 02/19/2025 Q3: How often do you have si x or more drinks on one occasion? Never 02/19/2025 PHQ-2 Answer Date Recorded PHQ-2 Score 0 06/27/2019 Personal Safety Answer Date Recorded Have you ever been in or are you currently in a harmful physical or emotional relationship or is someone making you feel afraid or unsafe? Denies 04/30/2023 Comments No Sex and Gender Information Value Date Recorded Sex Assigned at Not on file Legal Sex Female 8:44 AM THREAD SPINNER Gender Identity Not on file Sexual Orientation Not on file Last Filed Vital Signs Vital Sign Reading Time Taken Comments Blood Pressure 143/84 02/23/2025 10:44 AM CDT Pulse 69 02/23/2025 10:44 AM CDT Temperature 36.5 C (97.7 F) 02/23/2025 8:52 AM CDT Respiratory Rate 16 02/23/2025 10:44 AM CDT Oxygen Saturation 97% 02/23/2025 10:44 AM CDT Inhaled Oxygen Concentration - - Weight 103 kg (227 lb) 02/23/2025 8:52 AM CDT Height 162.6 cm (5' 4) 12/19/2024 10:11 AM THREAD SPINNER Body Mass Index 38.96 12/19/2024 10:11 AM THREAD SPINNER Plan of Treatment Not on file Goals Goal Patient Goal Type Associated Problems Recent Progress Patient-Stated? Author CCM Chronic Pain Care Plan Chronic Care Management No Rosy Benavidez, RN Note: Problem: Chronic Pain Goals: 1. Minimize further functional decline 2. Maximize quality of life 3. Control pain Strategies: - Activity/exercise program recommendation - Conservative stepwise pain medicine strategy with multi-disciplinary approach - Recommend healthy lifestyle strategies and compensatory methods as needed Reduce the likelihood of falling Lifestyle Rosy Hameed, ISMAEL Note: Below are four things you can do to prevent falls: Begin an exercise program to improve your leg strength & balance Ask your doctor or pharmacist to review your medicines Get annual eye check-ups & update your eyeglasses Make your home safer by: Removing clutter & tripping hazards Putting railings on all stairs & adding grab bars in the bathroom Having good lighting, especially on stairs Contact your local community or [facility] for information on exercise, fall prevention programs, or options for improving home safety. Medical Devices Implanted Type Area Glass Tube Bender Device Identifier Shelf Expiration Date Model / Serial / Lot [employer] Interstim 100cm Percutaneous Electrode Insulated Kit [id number] - Sn/A - [id number] Implanted:Qty: 1 on 04/18/2023 by Benito Cadena MD at [facility] Other - see comments Right: Sacrum Med[employer] Inc 02/12/2025 [id number] / N/A / [id number] [employer] Interstim 28cm Quadripolar Mri Pension Administrator Neurostimulator [id number] - Sn/A - [id number] Implanted:Qty: 1 on 04/18/2023 by Benito Cadena MD at [facility] Other - see comments Right: Sacrum [employer] 07/06/2024 [id number] / N/A / [id number] Med[employer]onic [employer] Generator Neurostimulator Bowel Bladder Recharge Free Interstim X [id number] - [id number] Implanted:Qty: 1 on 04/30/2023 by Benito Cadena MD at [facility] [employer] [id number] / / Procedures Procedure Name Priority Date/Time Associated Diagnosis Comments PAIN MGMT IMAGING LUMBAR/SACRAL SELECTIVE NERVE ROOT INJ (TFE) LEFT Schedule Routine, Read Routine (OP Routine) 02/23/2025 10:48 AM CDT Lumbar radiculopathy XR HIP LEFT 4 OR MORE VIEWS Schedule Routine, Read Routine (OP Routine) 02/10/2025 12:42 PM CDT Left hip pain EMG/NCV Routine 01/14/2025 10:14 AM CDT Lumbar radiculopathy EGFR Routine 04/30/2023 6:01 PM CDT HEMOGLOBIN A1C STAT 05/10/2017 11:03 AM CDT from Last 3 Months or Most Recently Relevant to Health Maintenance Results * Imaging Lumbar/Sacral Selective Nerve Root INJ (TFE) Left (53624) (02/23/2025 10:48 AM CDT) Narrative [id number] - 02/23/2025 10:48 AM CDT The images from this study are not interpreted by Radiology. Please refer to the physician's procedure / OR operative note. [facility] Azalea Stanton MD IMG PAIN MGMT PROCEDURES F inal Result [id number] * XR Hip Left 4 or More Views (02/10/2025 12:42 PM CDT) Anatomical Region Laterality Modality Lower Extremities, Hip, Pelvis Left C omputed Radiography 02/10/2025 1:01 PM CDT Impressions 02/10/2025 1:01 PM CDT 1. 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 Electronically signed by: James Lane M.D. Narrative 02/10/2025 1:01 PM CDT EXAMINATION: XR HIP LEFT 4 OR MORE VIEWS HISTORY: Left hip pain FINDINGS: Location of the left hip is read with comparison to CT 08/04/2021. Both hips are well seated without fracture or dislocation. There is bilateral coxa performed. Mild bilateral hip osteoarthritis.. Pubic symphysis is normal. Mild bilateral sacroiliac joint osteoarthritis. Sacral nerve stimulator in place. Procedure Note James Mariee MD - 02/10/2025 EXAMINATION: XR HIP LEFT 4 OR MORE VIEWS HISTORY: Left hip pain FINDINGS: Location of the left hip is read with comparison to CT 08/04/2021. Both hips are well seated without fracture or dislocation. There is bilateral coxa performed. Mild bilateral hip osteoarthritis.. Pubic symphysis is normal. Mild bilateral sacroiliac joint osteoarthritis. Sacral nerve stimulator in place. IMPRESSION: 1. 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 Electronically signed by: James Lane M.D. us Sera DIOR IMG XR PROCEDURES Sparkle l Result * EMG/NCV (01/14/2025 10:14 AM CDT) Anatomical Region Laterality Modality Other Narrative 01/14/2025 10:14 AM CDT Kelly Helm MD 01/14/2025 11:21 AM EMG/NCV - Date/Time: 01/14/2025 10:14 AM Performed by: Kelly Helm MD Authorized by: Nicolette Gloria NP us Nicolette Gloria NP NEUROLOGY ORDERABLES Fin al Result * eGFR (04/30/2023 6:01 PM CDT) eGFR >90 90 - 130 mL/min/1. 73 m2 [facility] Comment: Interpretive Data Reference Interval Normal >/= 90 mL/min/1.73m2 Mildly decreased* 60 - 89 mL/min/1.73m2 Mildly to moderately decreased 45 - 59 mL/min/1.73m2 Moderately to severely decreased 30 - 44 mL/min/1.73m2 Severely decreased 15 - 29 mL/min/1.73m2 Kidney Failure < 15 mL/min/1.73m2 *Relative to young adult level Estimated glomerular filtration rate is determined by the 2020 CKD-EPI equation recommended by the National Kidney Foundation (A Unifying Approach to GFR Estimation: Recommendations of the NKF-ASK Task Force on Reassessing the Inclusion of Race in Diagnosing Kidney Disease, JASN 2020). The CKD-EPI equation should not be used for patients with unstable renal function and has not been validated in children and those over 70. Current interpretive data was last reviewed 2021. Blood 04/30/2023 6:01 PM CDT 04/30/2023 6:10 PM CDT us Benito Cadena MD LAB BLOOD ORDERABLES Final Res ult [facility] Department [place] [address] * Hemoglobin A1c (05/10/2017 11:03 AM CDT) Hgb A1C 5.9 4.0 - 6.0 % [facility] Blood specimen (specimen) 05/10/2017 11:03 AM CDT 05/10/2017 11:54 AM CDT us Maria Luisa Marques MD LAB BLOOD ORDERABLES Sparkle l Result Performing Organization Address City/[facility]/ZIP Co de Phone Number [facility] [address] Department [place] [address] from Last 3 Months or Most Recently Relevant to Health Maintenance Insurance [employer] [facility] Member Subscriber Plan / Payer (Ef fective 2016-Present) Name:Mulu Puga Member ID:[id number] Relation to Subscriber:Self Name:Mulu Puga Subscriber ID:[id number] Payer ID:[id number] Type:[employer] HMO/PPO Address: [address] [place] [address] [employer] [place] Member Subscriber Plan / Payer (Ef fective 2019-Present) Name:Mulu Puga Relation to Subscriber:Spouse Name:ARGENTINA PUGA Date of :1973 (Home) Address: [address] [place] [address] Payer ID:[id number] (NAIC) Type: OTHER Address: [address] [place] [phone] [employer] [place] [employer] [place] Advance Directives For more information, please contact: [phone] * Full Code (Latest Code Status on File) Date Activated Date Inactivated Comments 04/30/2023 7:33 PM 05/01/2023 3:57 PM * Full Code Date Activated Date Inactivated Comments 07/27/2020 12:13 PM 07/29/2020 7:09 PM * Full Code Date Activated Date Inactivated Comments 10/03/2019 9:54 AM 10/10/2019 8:24 PM Care Teams Peat Shredder Tender Relationship Specialty Start Date End Date Jackelin Wei PA PCP - General 05/10/17 [place] [address] [address] Rheumatology 06/06/17 [place] [address] [place] [address] Consulting Physician Gastroenterology 07/28/20 Deneen Seymour NP [address] [place] [address] Nurse Practitioner Nurse Practitioner 08/01/24
--- OUTSIDE RECORDS SUMMARY | 2025-04-16 14:18 | XMS_ITS | Clinical Summary ---
Author Organization [facility] Address [address] [place] [address] Care Team Providers Care Shopper Marketing Manager Name Role Phone Sanjuana Jackelin DIOR Primary Care Provider Adriana Rosas MD Unavailable Harvinder Clifford MD Unavailable [phone] Deneen Seymour NP Unavailable [phone] Allergies Active Allergy Reactions Criticality Noted Date [...] 10/03/2019 Assessment & Plan (10/10/2019 9:54 AM FORENSIC MANAGER): Likely 2/2 epiploic appendagitis per Rads as well as c diff colitis. Rads report was not addended d/t it being performed w/in [facility] system. Pain not improved. - SENIOR VALIDATION ENGINEER seen, no torsion and negative eval. Evaluated [...] outpatient. Assessment & Plan (10/09/2019 9:12 AM FORENSIC MANAGER): Likely 2/2 epiploic appendagitis per Rads as well as c diff colitis. Rads report was not addended d/t it being performed w/in [facility] system. Pain not improved. - SENIOR VALIDATION ENGINEER seen, no torsion and negative eval. Evaluated [...] days. Assessment & Plan (10/08/2019 9:12 AM FORENSIC MANAGER): Likely 2/2 epiploic appendagitis per Rads as well as c diff colitis. Rads report was not addended d/t it being performed w/in [facility] system. Pain not improved. - SENIOR VALIDATION ENGINEER seen, no torsion and negative eval. - Evaluated by Gen surgery this AM and no need for surgery. GI also recommending conservative treatment. Sxs are self limited and should continue pain control. -will continue scheduled Tylenol, Toradol and prn oxycodone. IV dilaudid required for breakthrough until 10-08. -continue IVFs. Poor po d/t pain, but continuing to encourage. - started on oral vanc 125 QID for c diff on 10-07, planned for 10 days. Assessment & Plan (10/07/2019 9:24 AM FORENSIC MANAGER): Likely 2/2 epiploic appendagitis per Rads as well as c diff colitis. Rads report was not addended d/t it being performed w/in [facility] system. Pain not improved. - SENIOR VALIDATION ENGINEER seen, no torsion and negative eval. - Evaluated by Gen surgery this AM and no need for surgery. GI also recommending conservative treatment. Sxs are self limited and should continue pain control. -will continue scheduled Tylenol, Toradol and prn oxycodone, with back p IV dilaudid 1mg Q3. If sxs still not controlled may need MARKETING PERFORMANCE ANALYST. -continue IVFs. Poor po d/t pain. - started on oral vanc 125 QID for c diff on 10-07, planned for 10 days. Assessment & Plan (10/06/2019 12:16 PM FORENSIC MANAGER): Likely 2/2 epiploic appendagitis per Rads. Report was not addended d/t it being performed w/in [facility] system. Pain not improved. - SENIOR VALIDATION ENGINEER seen, no torsion and negative eval. - Evaluated by Gen surgery this AM and no need for surgery. GI also recommending conservative treatment. Sxs are self limited and should continue pain control. -will continue scheduled Tylenol, Toradol and prn oxycodone, with back p IV dilaudid 1mg Q3. If sxs still not controlled may need MARKETING PERFORMANCE ANALYST. -continue IVFs. Poor po d/t pain. Assessment & Plan (10/05/2019 3:18 PM FORENSIC MANAGER): Likely 2/2 epiploic appendagitis per Rads. Report was not addended d/t it being performed w/in [facility] system. Pain not improved. - SENIOR VALIDATION ENGINEER seen, no torsion and negative eval. -Evaluated by Gen surgery this AM and no need for surgery. Sxs are self limited and should continue pain control. -will continue scheduled Tylenol, Toradol and prn oxycodone. Will switch morphine to dilaudid 1mg Q3. If sxs still not controlled may need MARKETING PERFORMANCE ANALYST. -continue IVFs. Poor po d/t pain. Assessment & Plan (10/04/2019 10:03 AM FORENSIC MANAGER): Likely 2/2 epiploic appendagitis per Rads. Report was not addended d/t it being performed w/in [facility] system. Pain not improved. -Evaluated by Gen surgery this AM and no need for surgery. Sxs are self limited and should continue pain control. -will continue scheduled Tylenol, Toradol and prn oxycodone. Will switch morphine to dilaudid 1mg Q3. If sxs still not controlled may need MARKETING PERFORMANCE ANALYST. -continue IVFs. Poor po d/t pain. Assessment & Plan (10/03/2019 2:46 PM FORENSIC MANAGER): Per SENIOR VALIDATION ENGINEER: CT scan reread by Radiology this AM [...] 10/03/2019 Assessment & Plan (10/03/2019 2:55 PM FORENSIC MANAGER): Likely 2/2 epiploic appendagitis. Anion gap acidosis on BMP at OSH with elevated lactate to 2.7. Anion gap closed and lactate improved to 1.3 s/p IVFs. -continue IVFs. -monitor Diabetes mellitus, type 2 10/03/2019 Assessment & Plan (10/07/2019 9:24 AM FORENSIC MANAGER): BG stable. -continue holding metformin - BG have been stable while inpatient, so will discontinue LDSSI Assessment & Plan (10/06/2019 12:16 PM FORENSIC MANAGER): BG stable. -continue holding metformin -continue LDSSI and monitor. Assessment & Plan (10/05/2019 3:18 PM FORENSIC MANAGER): BG stable. -continue holding metformin -continue LDSSI and monitor. Assessment & Plan (10/04/2019 9:56 AM FORENSIC MANAGER): BG stable. -continue holding metformin -continue LDSSI and monitor. Assessment & Plan (10/03/2019 2:59 PM FORENSIC MANAGER): Reports recent diagnosis. Currently on metformin 500mg bid. Glucose stable. -hold metformin -continue LDSSI and monitor. Irritable bowel syndrome wit h both constipation and diarrhea 11/14/2018 Vitamin D deficiency 08/06/2018 Assessment & Plan (02/12/2019 11:33 AM CDT): Update lab as per orders. Assessment & Plan (11/14/2018 10:51 AM FORENSIC MANAGER): Update lab as per orders. Assessment & [...] management. Assessment & Plan (11/14/2018 10:43 AM FORENSIC MANAGER): An optimal BMI (body mass index) is [...] written. Assessment & Plan (11/14/2018 10:43 AM FORENSIC MANAGER): Patient on immunosuppressive medications requiring periodic lab [...] as per orders written. Rheumatoid arthritis of [facility] without rheumatoid factor 06/22/2017 Overview (09/08/2018): Images from the original note were not included. Assessment & Plan (10/10/2019 9:53 AM FORENSIC MANAGER): Sero-negative, on methotrexate (wednesdays) and Xeljanz. -continue Xeljanz. Assessment & Plan (10/09/2019 9:10 AM FORENSIC MANAGER): Sero-negative, on methotrexate (wednesdays) and Xeljanz. -continue Xeljanz. Assessment & Plan (10/08/2019 9:11 AM FORENSIC MANAGER): Sero-negative, on methotrexate (wednesdays) and Xeljanz. -continue Xeljanz. Assessment & Plan (10/07/2019 9:23 AM FORENSIC MANAGER): Sero-negative, on methotrexate (wednesdays) and Xeljanz. -continue Xeljanz. Assessment & Plan (10/06/2019 12:15 PM FORENSIC MANAGER): Sero-negative, on methotrexate (wednesdays) and Xeljanz. -continue Xeljanz. Assessment & Plan (10/05/2019 3:17 PM FORENSIC MANAGER): Sero-negative, on methotrexate (wednesdays) and Xeljanz. -continue Xeljanz. Assessment & Plan (10/04/2019 10:06 AM FORENSIC MANAGER): On methotrexate (wednesdays) and Xeljanz. -continue Xeljanz. Assessment & Plan (10/03/2019 2:47 PM FORENSIC MANAGER): On methotrexate and Xeljanz. -continue Xeljanz. -Not [...] molecule drug used to treat adults with jiejbpcv-db-nwoamd, active rheumatoid arthritis who have not responded [...] by Sarah Tirado and reviewed by the [employer] Committee on Communications and Marketing. This information is provided for general education only. Individuals should consult a qualified health care provider for professional medical advice, diagnosis and treatment of a medical or health condition. 2014 [employer] See more at: https://www.rheumatology.org/I-Am-A/Patient-Caregiver/Treatments/Tofacitinib-Cit rate- Xeljanz#sthash.[email or web address] Assessment & Plan (11/14/2018 10:51 AM FORENSIC MANAGER): Seronegative RA clinically stable on current med [...] molecule drug used to treat adults with yliioxnp-os-cypiyt, active rheumatoid arthritis who have not responded [...] by Sarah Tirado and reviewed by the [employer] Committee on Communications and Marketing. This information is provided for general education only. Individuals should consult a qualified health care provider for professional medical advice, diagnosis and treatment of a medical or health condition. 2014 [employer] See more at: https://www.rheumatology.org/I-Am-A/Patient-Caregiver/Treatments/Tofacitinib-Cit [...] all medications you are currently taking, including wmtv-tdz-qigevsz medications, supplements, and herbal therapies. Also, tell [...] Ba Garcia MD and reviewed by the [employer] Committee on Communications and Marketing. This information is provided for general education only. Individuals should consult a qualified health care provider for professional medical advice, diagnosis and treatment of a medical or health condition. 2017 [employer] - See more at: https://www.rheumatology.org/I-Am-A/Patient-Caregiver/Treatments/Rituximab-Ritux ree-Rubi Preciado#[email or web address] Assessment & Plan (02/06/2018 2:19 PM CDT): Seronegative rheumatoid arthritis previously diagnosed and managed by Dr. Adriana Rosas. Past medical records, labs and imaging reviewed in detail. Currently on methotrexate, sulfasalazine and tocilizumab as well as prn prednisone. She is not yet noticing response to tocilizumab after 8 weeks on Rx. Will update lab and imaging as per orders. Consider ultrasound hands/wrists [facility] pend same. Methotrexate dose potentially could be [...] 07/17/2011 08/06/2018 Overview (02/08/2017): JOINT PAIN-MULT JTS Encounters Date Type Department Care Team Description 03/09/2025 Telephone [facility] at [place] [id number] [address], [address] [place] [address] Shavonne Stanton MD 2 week post proc call 02/23/2025 8:47 AM CDT - 02/23/2025 11:59 PM CDT Hospital Encounter [facility] at [address], [address] [place] [address] Shavonne Stanton MD Chronic midline low back pain with left-sided sciatica (Primary Dx); Pain of left hip; Lumbar radiculopathy; Protrusion of lumbar intervertebral disc Discharge Disposition: Discharge to home or self care 02/20/2025 Telephone [facility] at [address], [address] [place] [id number] Gemini Alberts RN PMC Intake Assessment 02/19/2025 9:00 AM CDT Office Visit [facility] Neurosurgery [address] [place] [address] [place] [address] Nicolette Gloria NP Pain of left hip (Primary Dx); Lumbar radiculopathy 02/10/2025 1:00 PM CDT Office Visit [facility] Orthopaedic Surgery [address] [place] [address] Medical Office Building [address] [place] [address] Sera Anne PA Left hip pain (Primary Dx); Pain of left hip 02/10/2025 11:58 AM CDT - 02/10/2025 11:59 PM CDT Hospital Encounter [facility] Radiology [address] [place] [address] [address] [place] [address] Left hip pain Discharge Disposition: Discharge to home or self care 01/14/2025 10:00 AM CDT Procedure visit [facility] Neurological Testing [address] [place] [address] [place] [address] Lumbar radiculopathy from Last 3 Months Immunizations Immunization Administration Dates Next Due Influenza, Quadrivalent, Alise l Culture-based MDCK, Antibiotic Free, Intramuscular 09/06/2020 Influenza, Quadrivalent, Spl it, Preservative Free, Intramuscular 10/06/2021,10/04/2019,08/06/2018 Influenza, Trivalent, IM (MDV) 07/19/2015 Moderna SARS-CoV-2 Monovalen t Vaccination (12+ YRS) 01/27/2021,12/30/2020 Moderna Sars-cov-2 Monovalen t Booster Vaccination .25 Ml dose (12+ YRS) 09/24/2021 Pneumococcal Conjugate PCV 13 08/06/2018 Surgical History Surgery Date Site/Laterality Comments OTHER SURGICAL HISTORY tear duct surgery TONSILLECTOMY tonsilectomy as a child CARPAL TUNNEL RELEASE 11/05/2007 - 11/04/2008 Left carpal tunnel-left LAPAROSCOPIC TOTAL HYSTERECTOMY 11/05/2016 - 11/04/2017 with bilateral salpingectomy LAPAROSCOPIC CHOLECYSTECTOMY 11/05/2013 - 11/04/2014 ERCP 07/27/2020 Medical History Medical History Date Comments Diabetes mellitus (HCC) RA (rheumatoid arthritis) (HCC) Migraines Irritable bowel syndrome (IBS) Rash Covid Tested positive 01/22/2023 / not hospitalized but did get pneumonia afterwards PONV (postoperative nausea and vomiting) Hypertension Type 2 diabetes mellitus (HCC) Obesity Family History Medical History Relation Name Comments Skin cancer Father skin cancer; Rheum arthritis Maternal Grandmother Rheu matoid arthritis; Diabetes Mother Diabetes mellit us; Rheum arthritis Paternal Grandmother Rheu matoid arthritis; Anesthesia problems Neg Hx Relation Name Status Comments Father Alive Maternal Grandmother Alive Mother Alive Paternal Grandmother Alive Social History Tobacco Use Types Packs/Day Years [...] on file Legal Sex Female 8:44 AM FORENSIC MANAGER Gender Identity Not on file Sexual Orientation Not on file Obstetrics History Para Term AB IAB SAB Ectopic Multiple Livin g Live Births 2 2 2 2 2 Date Outcome GA Total Labor Labor/2nd/3rd Weight Sex Type Anes PTL Niya A1 A5 Name Clin Term Vag-S pont Living Term Vag-S pont Living Last Filed Vital Signs Vital Sign Reading [...] 162.6 cm (5' 4) 12/19/2024 10:11 AM FORENSIC MANAGER Body Mass Index 38.96 12/19/2024 10:11 AM FORENSIC MANAGER Plan of Treatment Health Maintenance Due Date Last Done Comments Albumin Creatinine Ratio, Urine 1978 Breast Cancer Screening-Mammogram 1978 Colon Cancer Screening-Colonoscopy 1978 Hepatitis C Screening 1978 Dilated Eye Exam 1978 Foot Exam 1978 Lipid Panel 1978 DTaP/Tdap/Td Vaccine (1 - Tdap) 1989 Hepatitis B Screening 1996 Regular Well Visit/Exam 18-64 1996 Hemoglobin A1C 11/10/2017 05/10/2017 Pneumococcal vaccine <65 (2 of 2 - PPSV23) 10/01/2018 08/06/2018 Depression Screening 11/14/2019 11/14/2018 eGFR 04/30/2024 04/30/2023, 12/0 12/2020, 08/03/2021, Additional history exists Covid-19 Vaccine ( season) 2024 09/24/2021, 01/27/2021, 12/30/2020 Influenza Vaccine (Season Ended) 2025 10/06/2021, 09/06/2020, 10/04/2019, Additional history exists HPV Vaccines Aged Out No longer eligi ble based on patient's age to complete this topic Goals Goal Patient Goal Type Associated Problems Recent Progress Patient-Stated? Author CCM Chronic Pain Care Plan Chronic Care Management No Rosy Benavidez RN Note: Problem: Chronic Pain Goals: 1. Minimize further functional decline 2. Maximize quality of life 3. Control pain Strategies: - Activity/exercise program recommendation - Conservative stepwise pain medicine strategy with multi-disciplinary approach - Recommend healthy lifestyle strategies and compensatory methods as needed Reduce the likelihood of falling Lifestyle No Rosy Benavidez RN Note: Below are four things you can [...] on stairs Contact your local community or [place]anning home for information on exercise, fall prevention programs, or options for improving home safety. Medical Devices Implanted Type Area Property Technician Device Identifier Shelf Expiration Date Model / Serial / Lot [employer] Interstim 100cm Percutaneous Electrode Insulated Kit [id number] - Sn/A - [id number] Implanted:Qty: 1 on 04/18/2023 by Benito Cadena MD at [facility] Other - see comments Right: Sacrum [employer] 02/12/2025 [id number] / N/A / [id number] [employer] Interstim 28cm Quadripolar Mri Industrial Ecologist Neurostimulator [id number] - Sn/A - [id number] Implanted:Qty: 1 on 04/18/2023 by Benito Cadena MD at [facility] Other - see comments Right: Sacrum [employer] 07/06/2024 [id number] / N/A / [id number] Med[employer]onic Inc Generator Neurostimulator Bowel Bladder Recharge Free Interstim X [id number] - [id number] Implanted:Qty: 1 on 04/30/2023 by Benito Cadena MD at [facility] [employer] [id number] / / Procedures Procedure Name Priority Date/Time [...] Lumbar/Sacral Selective Nerve Root INJ (TFE) Left ([id number]) (02/23/2025 10:48 AM CDT) Narrative RAD_PACS_[facility] - 02/23/2025 10:48 AM CDT The images from this study are not interpreted by Radiology. Please refer to the physician's procedure / OR operative note. Shavonne Stanton MD IM PAIN MGMT PROCEDURES F inal Result RAD_PACS_[facility] [...] signed by: James Lane M.D. us Sera Anne PA IMG XR PROCEDURES Sparkle l Result * [...] 90 - 130 mL/min/1. 73 m2 [facility] Comment: Interpretive Data Reference Interval Normal >/= [...] MD LAB BLOOD ORDERABLES Final Res ult [facility] Department [place] [address] * Hemoglobin A1c (05/10/2017 11:03 AM CDT) Hgb A1C 5.9 4.0 - 6.0 % [facility] Blood specimen (specimen) 05/10/2017 11:03 AM CDT 05/10/2017 11:54 AM CDT us Maria uLisa Marques MD LAB BLOOD ORDERABLES Sparkle l Result [facility] [address] Department [place] [address] from Last 3 Months or Most Recently Relevant to Health Maintenance Insurance Vital Access [facility] Member Subscriber Plan / Payer (Ef fective 2016-Present) Name:Mulu Puga Member ID:[id number] Relation to Subscriber:Self Name:Mulu Puga Subscriber ID:[id number] Payer ID:[id number] Type:Vital Access HMO/PPO Address: [address] [place] [address] [employer] [place] [employer] [place] [employer] [place] Advance Directives For more information, please contact: [phone] * Full Code (Latest Code Status on File) Date Activated Date Inactivated Comments 04/30/2023 7:33 PM 05/01/2023 3:57 PM * Full Code Date Activated Date Inactivated Comments 07/27/2020 12:13 PM 07/29/2020 7:09 PM * Full Code Date Activated Date Inactivated Comments 10/03/2019 9:54 AM 10/10/2019 8:24 PM Care Teams Shopper Marketing Manager Relationship Specialty Start Date End Date Jackelin Wei PA PCP - General 05/10/17 [place] [id number] [address] Rheumatology 06/06/17 [place] [address] [place] [address] Consulting Physician Gastroenterology 07/28/20 [place] [address] Nurse Practitioner Nurse Practitioner 08/01/24
--- NOTE | 2025-04-16 15:13 | ECG_ITS ---
Test Date: 2025-04-16 15:42:13 Measurements Intervals [place] Rate: 66 P: 31 MI: 172 QRS: -18 QRSD: 106 T: 3 QT: 422 QTc: 445 Interpretive Statements SINUS RHYTHM WITH SINUS ARRHYTHMIA VOLTAGE CRITERIA FOR LVH POSSIBLE ANTERIOR MYOCARDIAL INFARCTION BORDERLINE ST-T WAVE ABNORMALITY- INFERIOR LEADS BASELINE ARTIFACT- I, II, III, AVL ABNORMAL ECG No previous ECG available for comparison Electronically Signed On 04-16-2025 16:30:57 CDT by Willy Hernández D.O.
[2025-04-16 16:01] LABS: Hemoglobin 14.4 g/dL (12.0-15.0); Mean Corpuscular HGB Conc 33.5 g/dl (32-36); Mean Corpuscular Hemoglobin 28.7 pg (26-34); Mean Corpuscular Volume 85.7 fl (80-100); Platelet Count Result 319 k/mm3 (150-375); Red Blood Count 5.02 M/mm3 (4.2-5.4); Red Cell Distribution Width 14.7 % (11.5-14.5); White Blood Count 13.9 K/mm3 (4.5-10.0)
[2025-04-16 16:02] LABS: Add Urine Microscopic? NO; Appearance Urine Clear (Clear); Bilirubin Urine Negative (Negative); Blood Urine Negative (Negative); Color Urine Yellow (Yellow); Glucose Urine UA 3+ mg/dL (Negative); Ketones Urine 1+ mg/dL (Negative); Leukocyte Esterase Ur Negative LEU/UL (Negative); Nitrate Urine Negative (Negative); Protein Urine Negative (Negative); Specific Grav Ur 1.044 (1.001-1.035); Urobilinogen Urine 0.2 mg/dL (<2.0)
[2025-04-16 16:10] LABS: Anion Gap 15 mmol/L (4-12); Blood Urea Nitrogen 21 mg/dL (7-17); Calcium 10.1 mg/dL (8.4-10.2); Carbon Dioxide 20 mmol/L (22-30); Chloride 102 mmol/L (98-107); Estimated Glomerular Filt Rate > 60; Glucose 141 mg/dL (65-110); Potassium 4.1 mmol/L (3.4-5.0); Sodium 137 mmol/L (137-145)
[2025-04-16 16:18] LABS: INR 0.9; Prothrombin Time 11.9 Seconds (11.1-14.7)
[2025-04-16 16:19] LABS: Hemoglobin A1C 7.4 % (<5.7); Partial Thromboplastin Time 26.3 Seconds (22.3-36.8)
== END 2025-04-16 13:34 | disposition home or self-care (01) ==
LOC: ANHSURGERY 13:42
PROVIDERS: Visit Provider Neurological Surgery
DX: R94.31 Abnormal electrocardiogram [ECG] [EKG] (principal); M51.16 Intervertebral disc disorders with radiculopathy, lumbar region
CPT/HCPCS: 36415; 71046; 80048; 81003; 83036; 85027; 85610; 85730; 93005

== ENCOUNTER 2025-04-29 00:25 | Day surgery (SDC) | payer BC, SELFPAY ==
[2025-04-16 14:17] VITALS: BMI 39.3
--- NOTE | 2025-04-16 14:35 | PC.NURSE ---
Report to the Outpatient Waiting Room, entrance under the green pavilion located off [facility], at time __6:00AM____ on date ____04/29/25___. Planned Procedure Time: ___7:30AM____.? Time changes happen often and if your time is changed the preop area will call you the afternoon before. - You and your visitor will be asked to self-screen and do not enter if you have any COVID symptoms. Please call surgeon if you need to reschedule. - A mask is optional within the hospital at this time. Patients may have clear liquids (water, carbonated beverages, clear teas, apple juice) until 3 hours prior to surgery (4:30AM) with a maximum of 20 ounces. - No food from midnight until time of surgery and no smoking, or chewing tobacco (or any form of nicotine). No chewing gum, candy or mints. Take only the following medications with a SIP of water on the morning of surgery: ___GABAPENTIN, METOPROLOL. MAY TAKE HYDROXYZINE & REGLAN DO NOT STOP ANY OF YOUR OTHER PRESCRIPTION MEDICATIONS PRIOR TO SURGERY EXCEPT THE FOLLOWING Hold all vitamins and supplements for 3 days per anesthesiologist.- LAST DOSE 04/25/25 Medications to discontinue per physician __HOLD ALL NSAIDS(DICLOFENAC) 7 DAYS PRE-OP PER DR WELCH Date to take last dose 04/21/25 Please no make-up, nail yi, hairspray, perfume, deodorant, or body powder the day of surgery.? No jewelry (including any body piercings) or valuables the day of surgery, leave them at home.? Please take a shower or bath the night before, or the morning of, surgery with an antibacterial soap.? Wear comfortable, loose fitting clothing.? - Jewelry must be removed prior to entering the operating room.? Rings and piercings that are not removed may be cut off. - The hospital will not accept responsibility for valuables.? - Please leave all valuables, including medications, at home the day of surgery. If you are going home after surgery, a licensed class a regional truck driver must drive you home.? - NO public transportation without another adult if you receive anesthesia. - We recommend that an adult stay with you for 24 hours following discharge. - We also recommend that you do not drive, make important decision, drink alcoholic beverages, or take any drugs that were not prescribed by your health care provider for at least 24 hours after your discharge time. Follow any additional instructions given to you from your surgeon. Telephone instructions given to ____PATIENT and asked if any additional questions and then verbalized understanding. Patient advised to call surgeon office or pre surgery nurse liaison [phone] if any additional questions.
[2025-04-29] VITALS (10 sets, daily range): BP systolic 121–163; BP diastolic 69–99; PULSE 61–78; RESP 10–20; TEMP 36.2–36.3; O2SAT 94–100; BMI 40.4
--- NOTE | ~2025-04-29 | XR_ITS ---
EXAMINATION: XR fluoroscopy no charge DATE: 04/29/2025 10:00 INDICATION: Left L4-L5 microdiscectomy TECHNIQUE: 4 fluoroscopic images of the lower lumbar spine were obtained during procedure performed gustavo Chandra. Radiologist was not present for the imaging or procedure. The amount of fluoroscopy ti me used during this procedure was 0.1 minutes. Total DAP was 0.314 mGym^2. COMPARISON: None. FINDINGS: Images demonstrate surgical retractors and lap sponge projecting over the soft tissues posterior to l ower lumbar spine. The tip of a metallic probe projects deeper over the inferior margin of the L4 spi nous process. Incidental sacral nerve root stimulator in expected position extending from posterior t o anterior through one of the S3 neural foramina. IMPRESSION: 1. Fluoroscopy utilized during reported left L4-L5 microdiscectomy. See procedure note for further de tail. Reviewed, dictated and finalized at location A. IMPRESSION: 1. Fluoroscopy utilized during reported left L4-L5 microdiscectomy. See procedu re note for further detail.
[2025-04-29] MEDS: LACTATED RINGERS 1,000 ML 30 ML IV CONT ×2 (06:30→09:21)
[2025-04-29 06:40] LABS: Glucose Point of Care 183 mg/dl (65-105)
--- NOTE | 2025-04-29 07:15 | WPDANESEPPF ---
Anes - Initial Pre Proc Eval Procedure: Operation Date: 04/29/25 07:30 Proposed Procedures p Left L4-5 Microdiscectomy - Harriett Chandra MD Date/Time: 04/29/25 07:15 Surgeon: Harriett Chandra MD Pre Op Diagnosis: left lumbar disc herniation w/radiculopathy Patient Data Age: 44 Gender: F Height: 1.63 m Weight: 106.7 kg Allergies Allergy/AdvReac Type Severity Reaction Status Date / Time adalimumab (From Humira) AdvReac Nausea and Verified 04/29/25 07:12 Vomiting carbamazepine (From Tegretol) AdvReac Nausea and Verified 04/29/25 07:12 Vomiting Home Medications ?Medication ?Instructions ?Recorded ?Confirmed ?Type cetirizine 10 mg tablet (Zyrtec) 10 mg PO DAILY 03/25/25 04/29/25 History epinephrine 0.3 mg/0.3 mL 0.3 mg IM ONCE PRN anaphylaxis 03/25/25 04/16/25 History injection, auto-injector (EpiPen) famotidine 40 mg tablet 40 mg PO BID 03/25/25 04/29/25 History hydroxyzine HCl 25 mg tablet 25 mg PO BID PRN itching 03/25/25 04/16/25 History metoclopramide HCl 10 mg tablet 10 mg PO Q6H PRN nausea and 03/25/25 04/16/25 History (Reglan) vomiting montelukast 10 mg tablet 10 mg PO DAILY 03/25/25 04/29/25 History (Singulair) semaglutide 1 mg/dose (4 mg/3 mL) 1 mg subcut WEEKLY 03/25/25 04/29/25 History subcutaneous pen injector (Ozempic) diclofenac sodium 75 mg 75 mg PO BID 04/16/25 04/29/25 History tablet,delayed release enalapril maleate 10 mg tablet 10 mg PO QAM 04/16/25 04/29/25 History ergocalciferol (vitamin D2) 1,250 50,000 unit PO WEEKLY 04/16/25 04/29/25 History mcg (50,000 unit) capsule ferrous sulfate 325 mg (65 mg 325 mg PO DAILY 04/16/25 04/29/25 History iron) tablet (FeroSul) fluticasone propionate 50 1 spray intranasal Q12H 04/16/25 04/29/25 History mcg/actuation nasal spray,suspension folic acid 1 mg tablet 1 mg PO DAILY 04/16/25 04/29/25 History gabapentin 600 mg tablet 600 mg PO TID 04/16/25 04/29/25 History hydrochlorothiazide 25 mg tablet 25 mg PO QAM 04/16/25 04/29/25 History metoprolol tartrate 50 mg tablet 50 mg PO BID 04/16/25 04/29/25 History omalizumab 1 ml subcut MONTHLY 04/16/25 04/16/25 History rosuvastatin 10 mg tablet 10 mg PO HS 04/16/25 04/29/25 History tizanidine 4 mg tablet 4 mg PO DAILY PRN muscle spasticity 04/16/25 04/16/25 History Laboratory Tests 04/29/25 06:35 POC Capillary Glucose 183 H mg/dl (65-105) Patient hx anesthesia problems: none Family hx anesthesia problems: none Results Review: All pre-operative results and documents have been reviewed as part of the pre-operative evaluation. [facility] Past Medical History Medical History Rheumatoid arthritis IBS (irritable bowel syndrome) Headache Diabetes Arthritis Anemia Family History Family History Mother Diabetes mellitus Heart disease Hypertension Father Hypertension Diabetes mellitus Alcoholism Grandparent Alcoholism Cancer Anxiety Grandparent Cancer Social History Social History Smoking status: Never smoker Alcohol intake: current Alcohol use details: rarely Substance use: never Substance use type: does not use Do You Feel Safe in your Home?: Yes Lack of Transportation: No Lack of Food: Never True Current Housing: I Have Housing Concerned About Future Housing: No Difficulty Paying Gas/Electric Bills: No Difficulty Paying for Meds: No Currently Unemployed: No Education: High School Diploma/GED Difficulty w/ Childcare or Family Care: No Living arrangements: with family Additional living arrangements comments: [facility] [employer] [facility] Spiritual care concerns: No Anes - Eval Final PreProcedure Day of Procedure 04/29/25 07:15 Patient weight: morbidly obese Heart: regular rate and rhythm Lungs: clear to auscultation Airway: Mallampati scale class III Neurological: alert and oriented Last oral intake: >/= 8 hours ASA classification: III Emergent: no Anesthetic plan: proceed Anesthesia type and monitoring: general ETT and standard monitoring Results Review: All pre-operative results and documents have been reviewed as part of the pre-operative evaluation. Informed Consent: The patient's anesthetic plan and its attendant risks and benefits were discussed with the patient/family/POA. Questions were solicited and answers provided to the satisfaction of the patient/family/POA.
--- NOTE | 2025-04-29 07:18 | P.HP_ITS ---
H&P: HPI History of Present Illness Date/Time: 04/29/25 07:18 Chief Complaint: left leg pain Narrative: Ms. Puga is a 44-year-old female with history of diabetes, hypertension, and rheumatoid arthritis who is referred by Dr. Singh for a 2nd opinion regarding her left leg pain. Her symptoms started insidiously in July. This initially started as pain in her left hip which she thought was related to her rheumatoid arthritis. However, this gradually worsened significantly and started to radiate down her outer aspect of her left leg into the outer left foot and top of the foot. Pain worsens with standing and walking, and she can get some relief by lying down on her right side. She has paresthesias in the foot. She has no pain in her lower back. She has a sense of weakness in her leg and has fallen multiple times. This has prompted her to start using a wheelchair when she has to travel any significant distance outside of her home. She uses a walker inside of her home for stability. She has recently started having some muscle cramps in a similar distribution in the right side. She also notably had a bladder stimulator placed a couple years ago and has lately started having some recurrent episodes of urinary incontinence which had previously been well controlled with her stimulator. She went to see a physical therapist and performed 1 session, but therapy has been extremely cost prohibitive, so she has been doing exercises on her own at home. She has had multiple injections with both Dr. Singh and more recently Dr. Stanton including lumbar epidural steroid injections, a left SI joint injection, and left intra-articular hip injection. She had no relief any of these, even temporarily. She has been following with the Neurosurgery nurse practitioners at [facility] who were not convinced that her leg symptoms related to her lumbar spine. She has seen orthopedic provider and had imaging of her left hip which was normal. She currently takes gabapentin, diclo fenac, and tizanidine. She has tried prescription pain medications including oxycodone and hydrocodone without significant relief. She states that her diabetes is generally well controlled, but her last A1c was 7.7% which she attributed to having a recent epidural steroid injection. She does not smoke and does not take blood thinners. She has not been able to work because her job requires travel which is significantly difficult with her pain and immobility. [facility] Past Medical History Medical History Rheumatoid arthritis IBS (irritable bowel syndrome) Headache Diabetes Arthritis Anemia Family History Family History Mother Diabetes mellitus Heart disease Hypertension Father Hypertension Diabetes mellitus Alcoholism Grandparent Alcoholism Cancer Anxiety Grandparent Cancer Social History Social History Smoking status: Never smoker Alcohol intake: current Alcohol use details: rarely Substance use: never Substance use type: does not use Do You Feel Safe in your Home?: Yes Lack of Transportation: No Lack of Food: Never True Current Housing: I Have Housing Concerned About Future Housing: No Difficulty Paying Gas/Electric Bills: No Difficulty Paying for Meds: No Currently Unemployed: No Education: High School Diploma/GED Difficulty w/ Childcare or Family Care: No Living arrangements: with family Additional living arrangements comments: [facility] [employer] [facility] Spiritual care concerns: No Meds Home Medications and Allergies Home Medications ?Medication ?Instructions ?Recorded ?Confirmed ?Type cetirizine 10 mg tablet (Zyrtec) 10 mg PO DAILY 03/25/25 04/29/25 History epinephrine 0.3 mg/0.3 mL 0.3 mg IM ONCE PRN anaphylaxis 03/25/25 04/16/25 History injection, auto-injector (EpiPen) famotidine 40 mg tablet 40 mg PO BID 03/25/25 04/29/25 History hydroxyzine HCl 25 mg tablet 25 mg PO BID PRN itching 03/25/25 04/16/25 History metoclopramide HCl 10 mg tablet 10 mg PO Q6H PRN nausea and 03/25/25 04/16/25 History (Reglan) vomiting montelukast 10 mg tablet 10 mg PO DAILY 03/25/25 04/29/25 History (Singulair) semaglutide 1 mg/dose (4 mg/3 mL) 1 mg subcut WEEKLY 03/25/25 04/29/25 History subcutaneous pen injector (Ozempic) diclofenac sodium 75 mg 75 mg PO BID 04/16/25 04/29/25 History tablet,delayed release enalapril maleate 10 mg tablet 10 mg PO QAM 04/16/25 04/29/25 History ergocalciferol (vitamin D2) 1,250 50,000 unit PO WEEKLY 04/16/25 04/29/25 History mcg (50,000 unit) capsule ferrous sulfate 325 mg (65 mg 325 mg PO DAILY 04/16/25 04/29/25 History iron) tablet (FeroSul) fluticasone propionate 50 1 spray intranasal Q12H 04/16/25 04/29/25 History mcg/actuation nasal spray,suspension folic acid 1 mg tablet 1 mg PO DAILY 04/16/25 04/29/25 History gabapentin 600 mg tablet 600 mg PO TID 04/16/25 04/29/25 History hydrochlorothiazide 25 mg tablet 25 mg PO QAM 04/16/25 04/29/25 History metoprolol tartrate 50 mg tablet 50 mg PO BID 04/16/25 04/29/25 History omalizumab 1 ml subcut MONTHLY 04/16/25 04/16/25 History rosuvastatin 10 mg tablet 10 mg PO HS 04/16/25 04/29/25 History tizanidine 4 mg tablet 4 mg PO DAILY PRN muscle spasticity 04/16/25 04/16/25 History Allergies Allergy/AdvReac Type Severity Reaction Status Date / Time adalimumab (From Humira) AdvReac Nausea and Verified 04/29/25 07:12 Vomiting carbamazepine (From Tegretol) AdvReac Nausea and Verified 04/29/25 07:12 Vomiting Exam Narrative: Positive straight leg raise on left Worsened hip pain with FAIR/MARYELLEN Tenderness to palpation in lower lumbar region Unless otherwise stated above, the patient's physical exam is as follows: General: -Well developed and well nourished. No a cute distress. Cooperative with exam. Mental status: -Awake and oriented to person, place, an d time. Affect is normal. -Fund of knowledge appropriate -Recent and remote memory are intact -Attention span and concentration appear normal -Language function is normal -There is no evidence of aphasia in conv ersational speech. Cranial nerves: -CN II: Visual hamm full to bedside co nfrontation -CN III, IV, : Pupils equal, round, an d reactive to light; extraocular movements, no ptosis, no nystagmus -CN V: Facial sensation intact in V1 thr ough V3 distributions -CN VII: Face symmetric -CN VIII: Hearing intact to conversation al speech -CN IX, X: Palate elevates symmetrically ; normal phonation -CN XI: Symmetric full strength of farnsworth ocleidomastoid and trapezius muscles -CN XII: Tongue protrudes midline Integumentary: -No obvious skin lesions or masses Motor: -Muscle tone normal without spasticity o f flaccidity. No atrophy. No fasciculations. -No pronator drift -Right upper extremity: deltoid 5/5, bic eps 5/5, triceps 5/5, wrist extensors 5/5, wrist flexors 5/5, intrinsics 5/5 -Left upper extremity: deltoid 5/5, radhika ps 5/5, triceps 5/5, wrist extensors 5/ 5, wrist flexors 5/5, intrinsics 5/5 -Right lower extremity: iliopsoas 5/5, q uadriceps 5/5, hamstrings 5/5, tibialis anterior 5/5, gastroc-soleus 5/5, EHL 5/5 -Left lower extremity: iliopsoas 5/5, qu adriceps 5/5, hamstrings 5/5, tibialis anterior 5/5, gastroc-soleus 5/5, EHL 5/5 Sensory: -Intact to light touch throughout -Normal proprioception throughout Reflexes: -1-2+ DTR's throughout -No Waters's, clonus, or Babinski bilat erally Musculoskeletal: -Lumbar spine: no tenderness to palpatio n, no pain, and normal lumbosacral spine movements -[id number]-[id number] test negative -Hip: normal range of motion, no crepitu s bilaterally. No pain reproduced on MARYELLEN or FAIR testing bilaterally -Knee: no instability, subluxation or la xity, and no crepitus bilaterally I personally reviewed the MRI lumbar spine which shows a left paracentral L4-5 disc herniation causing compression of the L5 nerve root. the remainder of her spine is unremarkable Assessment and Plan Assessment and plan (1) Lumbar disc herniation with radiculopathy: Code(s): M51.16 - Intervertebral disc disorders with radiculopathy, lumbar region Status: Acute Plan Ms. Puga is a 44-year-old female who has had radicular left leg pain since July for which she has had a number of injections, prescription [id number] medications, and home physical therapy without relief. She is essentially wheelchair-bound at this time and is unable to work due to her severe pain. On physical exam, she has a positive straight leg raise on the left side as well as worsened pain in the hip manipulation of her leg. I review ed her MRI lumbar spine which shows a left paracentral disc herniation L4-5 compressing the L5 nerve root. While it is a bit puzzling that she had no relief, even on a temporary basis, from an epidural steroid injection at this location, her symptoms do fit reasonably well with an L5 distribution, and her hip imaging was unimpressive. She has had fairly extensive workup from multiple providers for her symptoms without adequate relief. Therefore, I think it is reasonable to offer her surgery in the form of a left L4-5 microdiskectomy. We discussed surgery in detail including risks, expected recovery, and restrictions after surgery. We discussed surgery is not a guarantee of relief of her symptoms, but given that there are no other explanations for her symptoms, I think it is reasonable to proceed. She expressed understanding and would like to proceed as discussed.
--- NOTE | 2025-04-29 07:18 | WPDHPUPDATE1 ---
History and Physical Update Update Date/Time: 04/29/25 07:18 History and Physical has been reviewed, including an updated exam of the patient. There are NO changes in the patient's condition. Risks, benefits, and alternatives have been discussed and questions answered. Patient agrees to proceed with procedure.
[2025-04-29] MEDS: ceFAZolin 2 GM/D5W 50 ML 2 GM/50 ML BAG IVPB (07:30)
[2025-04-29] MEDS: BUPIVACAINE/EPINEPHRINE 0.5% 30 ML VIAL INFILTRATE (08:08)
[2025-04-29 09:26] LABS: Glucose Point of Care 231 mg/dl (65-105)
--- NOTE | 2025-04-29 09:27 | PM.OP ---
Procedure Note - Brief Procedure Note - Brief Date of procedure: 04/29/25 left lumbar disc herniation w/radiculopathy Post-op diagnosis: Same Procedure performed: Left L4-5 microdiskectomy Surgeon: Harriett Chandra MD Preventive Medicine Officer: Tyler Anesthesia: GETA Findings: Successful microdiskectomy without complication Estimated blood loss (mL): 20 Drains: No Packing: No Pathology: None sent Complications: None Condition: Stable Disposition: PACU
--- NOTE | 2025-04-29 09:28 | P.OP_ITS ---
Procedure Note - Detailed Date of Procedure 04/29/25 Pre-op Diagnosis left lumbar disc herniation w/radiculopathy Post-op Diagnosis Same Procedure Performed 1. Left L4-5 microdiskectomy 2. Use of microscope for microsurgical dissection 3. Use of C-arm for fluoroscopy Surgeon Harriett Chandra MD Furniture Arranger Tyler Anesthesia General Description of Procedure The patient was brought to the operating room, and general anesthesia was induced. The patient was placed prone on the Albert frame, and all pressure points were padded. Compression devices were placed on the patient's calves. The skin was cleaned with alcohol. The C-arm was brought onto the field to localize the appropriate disc space and assist with incisional planning. The planned incision was marked. The area was prepped and draped in usual sterile fashion. A time out was conducted, and pre-operative antibiotics were administered. Local anesthesia was injected into the planned incision. A midline skin incision was opened with a 10-blade scalpel, and dissection was carried down with the monopolar cautery to open the fascia on the left side of midline. Once the spinous processes were located, a subperiosteal dissection was performed to expose the lamina on the left, taking care to avoid the facet. A self-retaining retractor was placed. The C-arm was brought in to confirm the correct level. The microscope was draped and brought into the field for microsurgical dissection. The high-speed drill was used to thin the left L4 lamina to the ligamentum flavum. A currette was used to separate the ligament from the bone which was then removed with the Kerrison. The ligamentum was then elevated with a currette and removed. The nerve root was medialized with a 4 penfield, and the disc space was exposed. A nerve hook was used to open the annulus, and soft disc material was easily elevated from the disc space. This w as removed with a micropituitary. This process was repeated until all easily- removable disc was freed. A Woodsen was used to verify adequate decompression at the cranial and caudal aspects of the decompression as well as into the foramen. Hemostasis was ensured with the bipolar, surgiflo, and cottonoids, and the area was copiously irrigated. No evidence of CSF leak was noted. The fascia was clos ed with 0-Vicryl in an interrupted fashion. The soft tissue was again copiously irrigated. The dermis was closed with 2-0 then 3-0 interrupted Vicryl. The skin was closed with 4-0 monocryl. Skin glue was applied. The patient was returned supine on the stretcher, extubated, and transferred to PACU without incident. Billing codes: 34317, 72552 Estimated Blood Loss 20 Drains No Packing No Pathology None sent Complications None Condition Stable Disposition PACU [facility] Billing Surgery - Charge Forward: Surgery Billing
[2025-04-29] MEDS: fentaNYL CITRATE INJ (*CRX) 100 MCG/2 ML VIAL 25 MCG IV PUSH (09:45)
[2025-04-29] MEDS: oxyCODONE HCL (*CRX) 5 MG TAB IR PO (10:40)
[2025-04-29] MEDS: PROPARACAINE HCL 0.5% 15 ML OPHTH SOLN 1 DROP EACH EYE (10:49)
[2025-04-29] MEDS: ARTIFICIAL TEARS OPHTH SOLN 15 ML BOTTLE 1 DROP EACH EYE (11:12)
== END 2025-04-29 11:34 | disposition home or self-care (01) ==
PROVIDERS: Visit Provider Neurological Surgery
PROC: (CPT 63030; principal; 2025-04-29 07:30)
DX: M51.16 Intervertebral disc disorders with radiculopathy, lumbar region (principal); E11.9 Type 2 diabetes mellitus without complications; I10 Essential (primary) hypertension; D64.9 Anemia, unspecified; K58.9 Irritable bowel syndrome, unspecified; M06.9 Rheumatoid arthritis, unspecified; M19.90 Unspecified osteoarthritis, unspecified site; E66.01 Morbid (severe) obesity due to excess calories; Z68.41 Body mass index [BMI] 40.0-44.9, adult; Z79.85 Long-term (current) use of injectable non-insulin antidiabetic drugs; Z98.890 Other specified postprocedural states; Z80.9 Family history of malignant neoplasm, unspecified; Z82.49 Family history of ischemic heart disease and other diseases of the circulatory system
CPT/HCPCS: 63030; 82948; 99199; A9270; J0690; J1100; J1171; J2250; J2405; J2704; J3010; J7120